=== PATIENT | male | born 1960 | race Caucasian/White ===

== ENCOUNTER 2020-04-14 20:06 | Observation (INO) | payer BC, SELFPAY ==
[2020-04-14] VITALS (7 sets, daily range): BP systolic 140–191; BP diastolic 71–92; PULSE 50–65; RESP 17–18; TEMP 36.6; O2SAT 95–97; BMI 25.9; BMI 25.2
--- NOTE | 2020-04-14 19:56 | ECG_ITS ---
APPROVED REPORT Exam: Resting ECG HR:57 bpm ECG Measurements Heart Rate 57 AXES [place] 162 P 43 QRSd 88 QRS -14 QT 410 T 22 QTc 399 Conclusion Sinus bradycardia Otherwise normal ECG Electronically signed by : Lino Benito, 04/18/2020 13:58:41
--- NOTE | 2020-04-14 20:15 | XR_ITS ---
PROCEDURE: XR CHEST 2V CLINICAL HISTORY: CHEST TIGHTNESS COMPARISON: No exams were available for comparison FINDINGS: The cardiomediastinal silhouette and pulmonary vascularity are within normal limits. There is calcified granuloma left upper lobe. There is mild coarsening of the bronchovascular markings. Faint opacity is present in the left midlung overlying the 4th rib anteriorly possibly due to summation artifact. Follow-up may confirm and to exclude developing nodule.. There is increased density at the T8 level on the lateral view posteriorly possibly due to the overlying osteophyte. There are degenerative changes of the thoracic spine. IMPRESSION: 1. No acute finding. 2. Coarsening of the bronchovascular markings suggesting COPD with possible left upper lobe nodule. Follow-up may confirm. Dictated by: Rufino Franklin MD 04/15/2020 05:53 Rufino Franklin MD in [place] 04/15/2020 05:53
[2020-04-14 20:49] LABS: Basophils # 0.1 K/mm3 (0-0.2); Basophils % 0.6 % (0.1-2.0); Eosinophils # 0.3 K/mm3 (0.0-0.4); Eosinophils % 2.6 % (0.1-12.0); Hematocrit 47.6 % (42.0-52.0); Hemoglobin 16.1 g/dL (14.1-18.0); Lymphocytes # 2.2 K/mm3 (0.7-4.5); Lymphocytes % 23.1 % (10-50); Mean Corpuscular HGB Conc 33.8 g/dL (31.8-35.4); Mean Corpuscular Hemoglobin 31.6 pg (27.0-31.2); Mean Corpuscular Volume 93.5 fl (80-94); Monocytes # 0.9 K/mm3 (0.1-1.0); Monocytes % 9.2 % (1.7-9.3); Neutrophils % 64.5 % (37.0-80.0); Platelet Count 270 K/mm3 (142-424); Red Blood Count 5.09 M/mm3 (4.60-6.20); Red Cell Distribution Width 13.3 % (11.5-17.5); White Blood Count 9.3 K/mm3 (4.8-10.8)
[2020-04-14 20:55] LABS: Potassium 3.7 mmoL/L (3.5-5.1); Sodium 142 mmol/L (136-145)
[2020-04-14 20:56] LABS: Chloride 106 mmol/L (98-107)
[2020-04-14 20:58] LABS: Anion Gap 10.7 mEq/L (5-15); Blood Urea Nitrogen 14 mg/dl (9-20); Carbon Dioxide 29 mmol/L (22.0-30.0); Creatinine Clearance Estimated 90 mL/min (50-200); Estimated Glomerular Filt Rate 69 ml/min (>60); GFR (African American) 83 ML/MIN (>60)
[2020-04-14 20:59] LABS: Calcium 9.4 mg/dl (8.4-10.2); Glucose 104 mg/dl (74-100)
[2020-04-14 21:11] LABS: Troponin I < 0.01 ng/ml (0.00-0.034)
--- NOTE | 2020-04-14 21:18 | HMH.EDCP ---
ED Disposition Clinical Impression: Chest pain Qualifiers: Chest pain type: precordial pain Qualified Code(s): R07.2 - Precordial pain Disposition: Admitted as Observation Condition on Discharge: Good Referrals: Provider,Referral, [Primary Care Provider] - - Critical Care Critical Care Time: No Attestation: On 04/14/20, the high probability of a clinically significant, sudden or life threatening deterioration of the following system(s) required my full and direct attention, intervention and personal management. The time I documented below is in addition to time spent performing reported procedures but includes the following listed in this critical care notation. Medical Decision Making - Medical Records Medical records reviewed: Yes: I reviewed the patient's medical records. - Claudio Inquiry Pt receiving controlled substance: No Vital Signs: 04/14/20 20:07 04/14/20 20:45 04/14/20 21:33 Temperature 97.9 F 97.9 F Temperature Source Oral Oral Pulse Rate [Right Brachial] 65 55 L 53 L Respiratory Rate 17 17 17 Blood Pressure [Right Arm] 191/88 H 155/79 H 170/92 H Blood Pressure Mean [Right Arm] 122 104 118 Blood Pressure Source [Right Arm] Automatic Cuff Automatic Cuff Automatic Cuff Blood Pressure Position [Right Arm] Sitting Sitting Sitting 02 Sat by Pulse Oximetry 96 97 97 Oxygen Delivery Method Room Air Room Air Room Air - Lab Data Lab results reviewed: Yes: I reviewed the patient's lab results. Lab Results 04/14/20 20:10: WBC Cancelled, Corrected WBC Cancelled, RBC Cancelled, Hgb Cancelled, Hct Cancelled, MCV Cancelled, MCH Cancelled, MCHC Cancelled, RDW Cancelled, Plt Count Cancelled, MPV Cancelled, Neut % (Auto) Cancelled, Lymph % (Auto) Cancelled, [place] % (Auto) Cancelled, Eos % (Auto) Cancelled, Baso % (Auto) Cancelled, Neut # (Auto) Cancelled, Lymph # (Auto) Cancelled, [place] # (Auto) Cancelled, Eos # (Auto) Cancelled, Baso # (Auto) Cancelled 04/14/20 20:10: Sodium 142, Potassium 3.7, Chloride 106, Carbon Dioxide 29, Anion Gap 10.7, BUN 14, Creatinine 1.10, Estimated Creat Clear 90, Estimated GFR 69, Est GFR ( Amer) 83, Glucose 104 H, Calcium 9.4, Troponin I < 0.01 04/14/20 20:37: WBC 9.3, RBC 5.09, Hgb 16.1, Hct 47.6, MCV 93.5, MCH 31.6 H, MCHC 33.8, RDW 13.3, Plt Count 270, MPV 8.0, Neut % (Auto) 64.5, Lymph % (Auto) 23.1, [place] % (Auto) 9.2, Eos % (Auto) 2.6, Baso % (Auto) 0.6, Neut # (Auto) 6.0, Lymph # (Auto) 2.2, [place] # (Auto) 0.9, Eos # (Auto) 0.3, Baso # (Auto) 0.1 Result diagrams: 04/14/20 20:37 04/14/20 20:10 Orders (Tests/Meds): ED MEDICATIONS Discontinued Medications Generic Name Dose Route Start Last Admin Trade Name Freq PRN Reason Stop Dose Admin Aspirin 324 mg 04/14/20 21:23 04/14/20 21:24 Aspirin 81mg Chewable Tablet PO 04/14/20 21:24 324 mg ONCE ONE Administration Nitroglycerin 1 gm 04/14/20 22:00 04/14/20 22:05 Nitroglycerin 1 Gm Ointment TD 04/14/20 22:01 1 gm ONCE ONE Administration ORDERS Category Date Time Status XR chest 2V Stat Exams 04/14/20 20:15 Taken Covid-19 IgG/IgM ([facility]) Stat Lab 04/14/20 20:37 Received Troponin I Q3H Lab 04/14/20 23:15 Ordered Troponin I Q3H Lab 04/15/20 02:15 Ordered Urinalysis and Microscopic Stat Lab 04/14/20 20:14 Ordered - Radiology Data #1 Image(s): Chest Image Reviewed: Yes I reviewed the patient's radiology image Preliminary Findings: Normal/NAD - ECG Data Tracing #1 Normal Sinus Rhythm: Yes Ischemic changes: non-specific ST-T wave changes - Physician Consults Physician Consulted: mellissa Reason -: Admission Chest Pain HPI - General Chief Complaint: Chest Pain Stated Complaint: CHEST TIGHTNESS Time Seen by Provider: 04/14/20 20:40 Mode of Arrival: Ambulatory Source of Information: Patient, Medical Record Limitations: No Limitations Description of Symptoms (Recalled from ER Triage Doc. by RN): PATIENT REPORTS HES BEEN STRUGGLING WITH ALOT OF ANXIETY/NERVOU
--- NOTE | 2020-04-14 22:08 | PC.NURSE ---
call placed to house admin
[2020-04-14 22:31] LABS: Coronavirus 19 IgG Antibody Negative (Negative); Coronavirus 19 IgM Antibody Negative (Negative)
--- NOTE | 2020-04-14 23:00 | PC.NURSE ---
PT ARRIVED TO THE FLOOR VIA W/C W/STAFF FROM ED @[id number]
--- NOTE | 2020-04-14 23:45 | PC.NURSE ---
Pt. clipped using surgical clippers. Pt. in shower at this time,
[2020-04-14 23:59] LABS: Troponin I < 0.01 ng/ml (0.00-0.034)
[2020-04-15] VITALS (18 sets, daily range): BP systolic 105–141; BP diastolic 55–81; PULSE 40–95; RESP 15–18; TEMP 36.6–36.8; O2SAT 93–99; BMI 25.3
--- NOTE | 2020-04-15 | IR_ITS ---
APPROVED REPORT Patient Location: Outpatient PROCEDURES Left heart catheterization Left ventriculogram Selective coronary angiogram Drug-eluting stent deployment to the mid chronically occluded left anterior descending artery Drug-eluting stent deployment to the first diagonal artery Drug-eluting stent deployment to the proximal circumflex artery INDICATION Coronary artery disease, Unstable angina, Family history of sudden cardiac stemming from coronary artery disease Informed consent was obtained prior to the procedure. COMPLICATIONS None Estimated Blood Loss: less than 10 ml TECHNIQUE One percent lidocaine used to anesthetize the right anterior aspect of the wrist. The right radial artery was accessed via the Seldinger technique. A 6 Romansh sheath was placed in the right radial artery. 2.5 mg of verapamil, 800 mcg of nitroglycerin, 1mg Lidocaine and 5000 U Heparin were given through the arterial sheath. The Poppa catheter was also used to perform left heart catheterization, left ventriculogram and selective coronary angiogram. At the end the diagnostic angiogram therapeutic heparin was administered giving a therapeutic ACT. A Choice PT extra-support wire was placed into the chronically occluded mid LAD. A 2 mm balloon could not be passed through the chronic occlusion. A telescope was then advanced into the mid LAD and a 1.25 x 10 mm balloon was deployed at 15 shawna reducing the stenosis. An additional 2 mm x 10 mm balloon was then deployed on multiple occasions in the chronic occlusion. After reducing the chronic occlusion a 2 mm x 15 mm resolute jg stent was deployed in the mid LAD at 15 shawna reducing the occlusion to 0%. After stenting there was excellent JACOB-3 antegrade flow down the LAD. At this point the wire was pulled back and placed into large first diagonal artery where a 2.75 x 18 mm resolute jg stent was deployed in the proximal LAD extending into a large first diagonal artery at 20 shawna. This reduced the severe stenosis. Given the LAD stent was not immediately adjacent to the diagonal stent it was decided not to place an additional bifurcating stent in the LAD. 800 mcg of intracoronary nitroglycerin was administered. The apparatus was pulled back and the wire was placed on the circumflex artery where a 2.75 x 12 mm resolute jg stent was then deployed in the proximal circumflex artery at 20 shawna reducing the stenosis to 0%. JACOB-3 flow was present before and after the procedure. Repeat angiography demonstrated the mid to distal LAD was increasing in diameter compared to the previous angiogram. At this point after achieving excellent angiographic results the apparatus was removed the sheath was removed and hemostasis was achieved using TR banding patient was transferred to the postop holding in stable condition ANGIOGRAPHIC RESULTS The left main artery Normal The left anterior descending artery Is proximally normal. After large first diagonal artery the LAD is then subtotally occluded. The distal LAD fills via left to left collaterals from a large first diagonal artery. The large first diagonal artery has an ostial 60 to 70% stenosis. Distal to the LAD stent there is a long 35 mm zone of narrowing. It is unknown if this is atherosclerosis or chronic spasm and atrophy from the chronic total occlusion. The circumflex artery Is a nondominant vessel and has a proximal focal 90% stenosis. Proximal and distal to the 90% stenoses are 10 to 20% diffuse stenoses The right coronary artery Is a large dominant vessel and has mid vessel 30 to 40% stenosis The ADAIR ventriculogram reveals Normal 65% The left ventricular end-diastolic pressure 10 mmHg IMPRESSION Critical coronary
[2020-04-15 03:12] LABS: Troponin I < 0.01 ng/ml (0.00-0.034)
--- NOTE | 2020-04-15 04:27 | PC.NURSE ---
shift summary, no acute changes since prior assessment, pt has rested well t/o shift, no complaints of chest pain, SOA, N/V, diaphoresis, HR 55-60, systolic BP 117-143, specimen cup at bedside, pt aware of need for urine specimen
--- NOTE | 2020-04-15 06:13 | PC.NURSE ---
Petey ENGLE NOTIFIED OF CONSULT
[2020-04-15 06:58] LABS: Chloride 106 mmol/L (98-107); Sodium 141 mmol/L (136-145)
[2020-04-15 07:00] LABS: Blood Urea Nitrogen 16 mg/dl (9-20); Creatinine Clearance Estimated 88 mL/min (50-200); Estimated Glomerular Filt Rate 69 ml/min (>60); GFR (African American) 83 ML/MIN (>60)
[2020-04-15 07:01] LABS: Calcium 9.1 mg/dl (8.4-10.2); Carbon Dioxide 30 mmol/L (22.0-30.0); Chol/HDL Ratio 6.3 (1-3.5); Cholesterol 144 mg/dl (140-200); Glucose 104 mg/dl (74-100); HDL Cholesterol 23 mg/dl (40-60); Magnesium 2.2 mg/dl (1.6-2.3); Triglycerides 152 mg/dl (30-150); VLDL Cholesterol 30 mg/dL (0-40)
[2020-04-15 07:12] LABS: Direct LDL Cholesterol 97.54 mg/dL (100-129)
[2020-04-15 07:21] LABS: Basophils % 0.4 % (0.1-2.0); Eosinophils # 0.3 K/mm3 (0.0-0.4); Eosinophils % 3.8 % (0.1-12.0); Hematocrit 43.1 % (42.0-52.0); Mean Corpuscular HGB Conc 32.7 g/dL (31.8-35.4); Mean Corpuscular Hemoglobin 30.5 pg (27.0-31.2); Mean Corpuscular Volume 93.2 fl (80-94); Mean Platelet Volume 7.5 fl (7.4-10.4); Monocytes # 0.8 K/mm3 (0.1-1.0); Monocytes % 10.3 % (1.7-9.3); Neutrophils # 4.7 K/mm3 (1.8-7.8); Neutrophils % 60.5 % (37.0-80.0); Platelet Count 244 K/mm3 (142-424); Red Blood Count 4.63 M/mm3 (4.60-6.20); Red Cell Distribution Width 13.1 % (11.5-17.5); White Blood Count 7.8 K/mm3 (4.8-10.8)
--- NOTE | 2020-04-15 07:26 | P.CONPHA_ITS ---
[facility] VTE Monitoring - Patient Demographics Admission date: 04/15/20 Report Date: 04/15/20 Time: 07:26 Allergies/Adverse Reactions: Patient Allergies No Known Allergies Allergy (Verified 04/15/20 00:05) Height: 1.83 m Weight: 84.964 kg Patient Problems: Current Active Problems Chest pain (Acute) - VTE Risk Labs: VTE Related Lab Results Hgb 16.1 g/dL (14.1-18.0) 04/14/20 20:37 Hct 43.1 % (42.0-52.0) 04/15/20 06:18 Plt Count 244 K/mm3 (142-424) 04/15/20 06:18 BUN 16 mg/dl (9-20) 04/15/20 06:18 Creatinine 1.10 mg/dl (0.66-1.25) 04/15/20 06:18 Estimated Creat Clear 88 mL/min (50-200) 04/15/20 06:18 Was VTE Risk Assessment Performed: Yes VTE Score: 5 VTE Risk Level: Low Risk Clinical Trial Participant: No - Prophylaxis VTE Prophylaxis Ordered?: Yes Types of VTE Prophylaxis: TEDS Knee High
--- NOTE | 2020-04-15 07:56 | HMH.CNCARD ---
History of Present Illness Consult date: 04/15/20 Requesting physician: Abel Carbajal Consult reason: chest pain Chief complaint: chest pain Additional Medical History:: 1. Smoker, 1.5 packs/day x 30 years A. COPD, moderate by PFTs, 2017 2. Anxiety and depression, situational 3. Family history of CAD in sister (sister this year after NE and coronary stenting) and uncle (history of pacemaker) 4. Hyperlipidemia 5. Chronic GERD, on PPI History of present illness: 59-year-old white male was seen in his PCP office yesterday for chest discomfort described as anterior chest tightness but also mid back aching sensation that would wax and wane during the day for 1 to 2 days. He also relates his daughter and granddaughter recently moving out along with his sister passing earlier this year after suffering myocardial infarction and coronary stenting. Patient does feel his anxiety is playing into this and he was started on bupropion yesterday symptoms continued edema and worsened after leaving his PCP office. This prompted him to come to the ER for evaluation. He was given 4 baby aspirin with slow resolution of symptoms thereafter. EKG last evening shows sinus bradycardia with no acute ST segment changes. Troponins are normal x3. He does note some brief fleeting discomfort this a.m. Patient is extremely nervous about this potentially being his heart in light of his recent family history. States he is concerned about dying from a heart attack. Preliminary echocardiogram this morning shows preserved ejection fraction with only mild valvular insufficiencies. [facility] History Medical History: Denies:: Cancer, Diabetes Mellitus Type 1, Diabetes Mellitus Type 2, MRSA *Have you ever received a pneumonia vaccine?: No *Have you received a flu vaccine this season?: No Other Surgeries: Yes: Cholecystectomy Amputation: No Fractures: No - *Social History Last grade of school completed: 9th or 10th Smoking Status: Current every day smoker Tobacco Type: cigarettes # Packs/Day (cigarettes): 1 Alcohol Intake: never *Occupational Status:: retired Housing: house *Travel in the last 8 weeks: None Family Hx:: Cancer, Hyperlipidemia, Hypertension, Kidney Disease, Thyroid Disorder Meds Home Medications Medication Instructions Recorded Confirmed Type buPROPion HCL [Bupropion Xl] 150 mg PO DAILY 04/14/20 04/14/20 History Allergies Allergy/AdvReac Type Severity Reaction Status Date / Time No Known Allergies Allergy Verified 04/15/20 00:05 Exam Vital signs and Labs for Last 24 Hours: Temp Pulse Resp BP Pulse Ox 98.3 F 60 17 117/68 98 04/15/20 04:00 04/15/20 04:00 04/15/20 04:00 04/15/20 04:00 04/15/20 04:00 Laboratory Results - last 24 hr 04/14/20 20:10: WBC Cancelled, Corrected WBC Cancelled, RBC Cancelled, Hgb Cancelled, Hct Cancelled, MCV Cancelled, MCH Cancelled, MCHC Cancelled, RDW Cancelled, Plt Count Cancelled, MPV Cancelled, Neut % (Auto) Cancelled, Lymph % (Auto) Cancelled, [place] % (Auto) Cancelled, Eos % (Auto) Cancelled, Baso % (Auto) Cancelled, Neut # (Auto) Cancelled, Lymph # (Auto) Cancelled, [place] # (Auto) Cancelled, Eos # (Auto) Cancelled, Baso # (Auto) Cancelled 04/14/20 20:10: Sodium 142, Potassium 3.7, Chloride 106, Carbon Dioxide 29, Anion Gap 10.7, BUN 14, Creatinine 1.10, Estimated Creat Clear 90, Estimated GFR 69, Est GFR ( Amer) 83, Glucose 104 H, Calcium 9.4, Troponin I < 0.01 04/14/20 20:37: WBC 9.3, RBC 5.09, Hgb 16.1, Hct 47.6, MCV 93.5, MCH 31.6 H, MCHC 33.8, RDW 13.3, Plt Count 270, MPV 8.0, Neut % (Auto) 64.5, Lymph % (Auto) 23.1, [place] % (Auto) 9.2, Eos % (Auto) 2.6, Baso % (Auto) 0.6, Neut # (Auto) 6.0, Lymph # (Auto) 2.2, [place] # (Auto) 0.9, Eos # (Auto) 0.3, Baso # (Auto) 0.1 04/14/20 20:37: SARS-CoV-2 IgG Ab (Rapid) Negative, SARS-CoV-2 IgM Ab (Rapid) Negative 04/14/20 23:30: Troponin I < 0.01 04/15/20 02:35: Troponin I < 0.01 04/15/20 06:18: WBC 7.8, RBC 4.63, Hct 43.1, MCV 93.2,
--- NOTE | 2020-04-15 08:00 | CA_ITS ---
APPROVED REPORT EXAM: Comprehensive 2D, Doppler, and color-flow Echocardiogram Letterer: Lelsy Osorio CRT Ht: 6 ft 0 in Wt: 192lbs BSA: 2.09 BP: 120/78 mmHg Indications: Chest Pain, smoker 2D Dimensions LVOT 1.95 cm (M/F) 1.5-2.5 M-Mode Dimensions RVDd 3.00 cm (0.9-2.6) LVDd 4.79 cm (3.5-5.7) LVDs 3.32 cm (3.5-5.7) IVSd 1.57 cm (0.6-1.1) PWd 0.75 cm (0.6-1.1) EF (Teich) 58.10% FS 30.70% EDV (Teich) 107.00 mL ESV (Teich) 44.80 mL LV Diastology E/A Ratio 1.56 Mitral Valve MV A Velocity 52.00 (40-130 cm/s) Left Ventricle Left atrium is mildly enlarged, left ventricle is normal size, mild concentric left ventricular hypertrophy, visually estimated ejection fraction 55% with no regional wall motion abnormality, grade 1 diastolic dysfunction seen without tissue Doppler evidence of raise left atrial pressure. Right Ventricle Right atrium and right ventricular normal size and contractility. Aortic Valve Aortic valve is minimally thickened and fibrosed, there is no aortic stenosis or aortic insufficiency. Mitral Valve Mitral valve is grossly normal, there is mild mitral regurgitation. Tricuspid Valve Tricuspid valve grossly normal, there is mild tricuspid regurgitation, tricuspid regurgitation jet velocity is inadequate for calculation of the right ventricular systolic pressure. Pulmonic Valve Pulmonic valve is poorly visualized. Great Vessels Aortic root is normal size. Pericardium No significant pericardial effusion noted. Conclusion 1. Mildly enlarged left atrium, normal left ventricular size, mild concentric left ventricular hypertrophy, visually estimated ejection fraction 55% with no regional wall motion abnormality, grade 1 diastolic dysfunction seen without tissue Doppler evidence of raise left atrial pressure. 2. Mild mitral and tricuspid regurgitation. 3. No significant pericardial effusion noted. Electronically signed by : Baldemar Noriega, 04/15/2020 20:09:06
[2020-04-15 08:46] LABS: Hemoglobin 14.1 g/dL (14.1-18.0)
--- NOTE | 2020-04-15 09:10 | HMH.HP ---
*Admission Date: 04/15/20 <BrownJulietteDivina - 04/15/20 09:31> *Chief complaint: Chest pain <Divina Brown 04/15/20 09:31> *History of present illness: Mr. Schwarz is a 59-year-old male with a previous negative medical history who presented to [facility] emergency room after experiencing ongoing intermittent anterior chest tightness/discomfort and pain between his shoulder blades. He states he has had the intermittent discomfort for the last 1 to 2 days. Sometimes it is associated with shortness of breath. He felt this might be due to anxiety and thus he presented to the office of [facility] yesterday and was started on bupropion for his anxiety. He describes being very nervous on the inside with jitters. He feels the anxiety is due to recent sister's from a heart attack and previous heart attack by his brother as well as family moving out of his home.. He also describes heartburn for which he takes omeprazole [id number]. He has felt weak and without any energy for the past 2 weeks. In the emergency room with evaluation CBC was basically normal. Blood chemistries showed normal electrolytes and renal function. Troponin I has been normal x3. EKG revealed a sinus bradycardia with no acute ST segment changes. Chest x-ray showed no acute findings with coarsening of the bronchial vascular markings suggesting COPD with possible left upper lobe nodule. Chest and back discomfort did slowly resolve. This morning he is comfortable. He denies shortness of breath. He has been seen by cardiology who plans for cardiac cath. <Divina Brown 04/15/20 09:31> [facility] History Medical History: Reports:: Gastroesophageal Reflux Disease(GERD) Denies:: Cancer, Diabetes Mellitus Type 1, Diabetes Mellitus Type 2, Hypertension, MRSA, Peripheral Artery Disease <Divina Brown 04/15/20 09:31> *Have you ever received a pneumonia vaccine?: No <Divina Brown 04/15/20 09:31> *Have you received a flu vaccine this season?: No <Divina Brown 04/15/20 09:31> Other Medical History: Denies: Arthritis <Divina Brown 04/15/20 09:31> Other Surgeries: Yes: Cholecystectomy <Divina Brown 04/15/20 09:31> Amputation: No <Divina Brown 04/15/20 09:31> Fractures: No <Divina Brown 04/15/20 09:31> - *Social History Last grade of school completed: 9th or 10th <Divina Brown 04/15/20 09:31> Smoking Status: Current every day smoker <Divina Brown 04/15/20 09:31> Tobacco Type: cigarettes <BrownDivina 04/15/20 09:31> # Packs/Day (cigarettes): 1 <KevinDivina 04/15/20 09:31> Alcohol Intake: never <KevinDivian 04/15/20 09:31> *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) <BrownDivina 04/15/20 09:31> Housing: house <Divina Brown 04/15/20 09:31> Household Members: family <BrownDivina 04/15/20 09:31> *Travel in the last 8 weeks: None <Divina Brown 04/15/20 09:31> Family Hx:: Cancer, Coronary Artery Disease, Heart Attack, Hyperlipidemia, Hypertension, Kidney Disease, Thyroid Disorder <BrownDivina 04/15/20 09:31> Review of Systems - Constitutional Reports lack of energy, Denies fever(s) <BrownDivina 04/15/20 09:31> - Eyes Reports change in vision <Brown,Divina 04/15/20 09:31> Comments: Has started to wear glasses <KevinDivina 04/15/20 09:31> - ENT Denies ear pain, Denies headache(s), Denies sore throat <Brown,Divina 04/15/20 09:31> - *Cardiovascular Reports chest pain, Reports shortness of breath, Reports irregular heart rhythm (Rare), Denies leg pain with activity, Denies generalized swelling, Denies leg swelling, Denies lightheadedness <Divina Brown 04/15/20 09:31> - *Respiratory Reports shortness of breath, Denies chest congestion, Denies cough <Divina Brown 04/15/20 09:31> - *Gastrointestinal Reports heartburn, Reports nausea, Denies abdominal pain, Denies vomiting <Divina Brown - 04/15/20 09:31> - *Genitourinary
[2020-04-15 09:11] LABS: Appearance,Urine SL CLOUDY (Clear); Blood, Urine Negative (Negative); Color,Urine ORANGE (Yellow); Glucose,Urine (UA) Negative (Negative); Ketones,Urine Negative (Negative); Leukocyte Esterase,Urine Negative (Negative); Microscopic, Urine URINE MICROSCOPIC (MICROSCOPIC); Nitrate,Urine Negative (Negative); PH,Urine 5.5 (5.0-8.5); Protein,Urine Negative (Negative); Specific Gravity, Urine >= 1.030 (1.005-1.030)
[2020-04-15 09:14] LABS: Bilirubin,Urine Negative (Negative)
[2020-04-15 09:23] LABS: Bacteria,Urine Trace /lpf; Mucus,Urine 2+ /lpf; Squamous Epithelial Cell,Urine Occasional #/hpf (0-5); Transitional Epi Cells,Urine OCC #/lpf (0-3)
[2020-04-15 16:01] LABS: CATHL Activated Clotting Time 257 SEC (74-125)
[2020-04-15 16:02] LABS: CATHL Activated Clotting Time > 400 SEC (74-125)
--- NOTE | 2020-04-15 16:21 | PC.NURSE ---
arrived to the floor from cathlab. Is now in room 216 step down
--- NOTE | 2020-04-15 19:39 | PC.NURSE ---
TRACELET DECREASED FOLLOWS 1800 TURNED DOWN TO 10 1815 TURNED DOWN TO 8 1830 TURNED DOWN TO 6 1845 TURNED DOWN TO 4 1925 TURNED DOWN TO 2 ALL WITHOUT ISSUE.
--- NOTE | 2020-04-15 20:15 | PC.NURSE ---
TRACELET DECREASED TO 0 ML AT THIS TIME. NO BLEEDING NOTED. 2X2 GAUZE AND TEGADERM APPLIED. WILL CONTINUE TO MONITOR.
[2020-04-16] VITALS: BP 121/69; PULSE 50; RESP 16; TEMP 37.7; O2SAT 96
[2020-04-16 02:00] VITALS: BP 110/69; PULSE 71; RESP 17; O2SAT 96
[2020-04-16 04:00] VITALS: BP 118/68; PULSE 50; PULSE 52; TEMP 36.8; O2SAT 96
--- NOTE | 2020-04-16 05:48 | PC.NURSE ---
A&OX3. SENIOR SOLUTIONS ARCHITECT EQUAL BILAT. LUNGS NOTED CLEAR T/ AUSCULTATION. TOLERATED RA WELL. PULSES +2, CAP REFILL <3 SEC. ASYMPTOMATIC SINUS FLAKITO AND NSR NOTED PER FILBERT GROWER. ABDOMEN NONDISTENDED, ACTIVE BOWEL SOUNDS, SOFT AND NONTENDER PER PALPATION. NO BM REPORTED THIS SHIFT. RIGHT RADIAL DRESSING NOTED CDI. INDEPENDENT WITH ADLS. VSS. WILL CONTINUE TO MONITOR.
[2020-04-16 05:52] LABS: Basophils % 0.3 % (0.1-2.0); Eosinophils # 0.3 K/mm3 (0.0-0.4); Eosinophils % 3.4 % (0.1-12.0); Hematocrit 46.1 % (42.0-52.0); Hemoglobin 15.2 g/dL (14.1-18.0); Lymphocytes # 1.4 K/mm3 (0.7-4.5); Lymphocytes % 14.3 % (10-50); Mean Corpuscular HGB Conc 32.8 g/dL (31.8-35.4); Mean Corpuscular Hemoglobin 30.5 pg (27.0-31.2); Mean Corpuscular Volume 92.9 fl (80-94); Mean Platelet Volume 7.7 fl (7.4-10.4); Monocytes # 0.7 K/mm3 (0.1-1.0); Neutrophils # 7.1 K/mm3 (1.8-7.8); Neutrophils % 74.9 % (37.0-80.0); Platelet Count 267 K/mm3 (142-424); Red Blood Count 4.97 M/mm3 (4.60-6.20); Red Cell Distribution Width 12.8 % (11.5-17.5); White Blood Count 9.5 K/mm3 (4.8-10.8)
[2020-04-16 06:02] LABS: Chloride 108 mmol/L (98-107)
[2020-04-16 06:03] LABS: Potassium 4.4 mmoL/L (3.5-5.1); Sodium 140 mmol/L (136-145)
[2020-04-16 06:06] LABS: Anion Gap 9.4 mEq/L (5-15); Blood Urea Nitrogen 18 mg/dl (9-20); Carbon Dioxide 27 mmol/L (22.0-30.0); Creatinine Clearance Estimated 88 mL/min (50-200); Estimated Glomerular Filt Rate 69 ml/min (>60); GFR (African American) 83 ML/MIN (>60); Glucose 96 mg/dl (74-100)
[2020-04-16 08:00] VITALS: BP 124/63; PULSE 50; PULSE 51; RESP 17; TEMP 36.8; O2SAT 97
--- NOTE | 2020-04-16 08:40 | HMH.ACPN2 ---
<Divina Brown - Last Filed: 04/16/20 08:40> Internal Medicine - PN: Subj *Date: 04/16/20 *Time: 08:40 Interval history: Patient states he slept well. He has had no further chest pain. He is breathing without difficulty. He ate breakfast. He has been out of bed and is sitting in a chair now. IMPRESSION Critical coronary disease Successful stenting and revascularization of chronically occluded mid LAD with successful stenting reducing to 0% with one drug-eluting stent Successful stenting of the proximal LAD extending into a large first diagonal artery severe disease reduced to 0% with one drug-eluting stent Persistent moderate to severe disease over 35 mm of a mid to distal 2 mm LAD Severe stenosis in the proximal nondominant circumflex artery Successful stenting of proximal circumflex artery severe disease reduced to 0% with one drug-eluting stent Mild to moderate disease in the mid dominant right coronary Normal ejection fraction Normal left ventricular end-diastolic pressure Exam Vital signs and Labs for Last 24 Hours: Temp Pulse Resp BP Pulse Ox 99.8 F H 50 L 16 121/69 96 04/16/20 00:00 04/16/20 04:00 04/16/20 00:00 04/16/20 00:00 04/16/20 00:00 Laboratory Results - last 24 hr 04/15/20 06:18: Hgb 14.1 D 04/15/20 08:00: Urine Color [place], Urine Appearance Sl cloudy, Urine pH 5.5, Ur Specific Mart >= 1.030, Urine Protein Negative, Urine Glucose (UA) Negative, Urine Ketones Negative, Urine Blood Negative, Urine Nitrate Negative, Urine Bilirubin Negative, Urine Urobilinogen 1.0, Ur Leukocyte Esterase Negative, Urine RBC 3-5, Urine WBC 5-10, Ur Squamous Epith Cells Occasional, Ur Transition Epith Cell Occ, Urine Bacteria Trace, Urine Mucus 2+ 04/15/20 15:10: Activated Clotting Time > 400 H* 04/15/20 15:39: Activated Clotting Time 257 H* D 04/16/20 05:45: WBC 9.5, RBC 4.97, Hgb 15.2, Hct 46.1, MCV 92.9, MCH 30.5, MCHC 32.8, RDW 12.8, Plt Count 267, MPV 7.7, Neut % (Auto) 74.9, Lymph % (Auto) 14.3, [place] % (Auto) 7.0, Eos % (Auto) 3.4, Baso % (Auto) 0.3, Neut # (Auto) 7.1, Lymph # (Auto) 1.4, [place] # (Auto) 0.7, Eos # (Auto) 0.3, Baso # (Auto) 0.0 04/16/20 05:45: Sodium 140, Potassium 4.4, Chloride 108 H, Carbon Dioxide 27, Anion Gap 9.4, BUN 18, Creatinine 1.10, Estimated Creat Clear 88, Estimated GFR 69, Est GFR ( Amer) 83, Glucose 96, Calcium 9.0 I & O for Last 24 hours: Intake & Output 04/13/20 04/14/20 04/15/20 04/16/20 11:59 11:59 11:59 11:59 Intake Total 284 / 284 Balance 284 / 284 Weight 187 lb 5 oz - Constitutional no acute distress Comments: Sitting up in a chair with family at bedside. He appears comfortable. - *Routine Respiratory Exam Present: CTA bilaterally (Anteriorly and posteriorly) - *Routine Cardiovascular Exam Present: RRR - *Routine Abdominal Exam Present: soft. Absent: tenderness, distended - *Routine Extremities Exam Absent: edema - *Routine Neurological Exam Present: alert, oriented X3 Assessment and Plan (1) Chest pain Status: Acute Qualifiers: Chest pain type: precordial pain Qualified Code(s): R07.2 - Precordial pain Category: Medical Code(s): R07.9 - Chest pain, unspecified (2) Smoker Status: Acute Category: Social Hx Code(s): F17.200 - Nicotine dependence, unspecified, uncomplicated (3) COPD (chronic obstructive pulmonary disease) Status: Acute Category: Medical Code(s): J44.9 - Chronic obstructive pulmonary disease, unspecified (4) Hyperlipidemia Status: Acute Category: Medical Code(s): E78.5 - Hyperlipidemia, unspecified (5) Elevated blood pressure, situational Status: Acute Category: Medical Code(s): R03.0 - Elevated blood-pressure reading, without diagnosis of hypertension (6) Anxiety and depression Status: Acute Category: Medical Code(s): F41.9 - Anxiety disorder, unspecified; F32.9 - Major depressive disorder, single episode, unspecified - Assessment and pl
--- NOTE | 2020-04-16 10:41 | HMH.PNCARD ---
Subjective Date: 04/16/20 Time: 10:40 Principal diagnosis: CAD s/p stenting Interval history: This is a 59-year-old white gentleman who underwent left cardiac catheterization yesterday. He had 2 stents placed to his LAD and 1 stent placed to his circumflex. He did have persistent disease that was in the moderate range to his right coronary artery. He also had persistent disease to his LAD for which Dr. Salazar recommend him undergoing stress testing in 1 month. Today he denies any chest pain, pressure, shortness of breath or edema. He denies any fever, chills, nausea, vomiting, diarrhea, PND or orthopnea. He does state that he has a little fatigue which he attributes to the sedation medicine that he received yesterday to undergo left cardiac catheterization. Exam Vital signs and Labs for Last 24 Hours: Temp Pulse Resp BP Pulse Ox 98.3 F 51 L 17 124/63 97 04/16/20 08:00 04/16/20 08:00 04/16/20 08:00 04/16/20 08:00 04/16/20 08:00 Laboratory Results - last 24 hr 04/15/20 15:10: Activated Clotting Time > 400 H* 04/15/20 15:39: Activated Clotting Time 257 H* D 04/16/20 05:45: WBC 9.5, RBC 4.97, Hgb 15.2, Hct 46.1, MCV 92.9, MCH 30.5, MCHC 32.8, RDW 12.8, Plt Count 267, MPV 7.7, Neut % (Auto) 74.9, Lymph % (Auto) 14.3, [place] % (Auto) 7.0, Eos % (Auto) 3.4, Baso % (Auto) 0.3, Neut # (Auto) 7.1, Lymph # (Auto) 1.4, [place] # (Auto) 0.7, Eos # (Auto) 0.3, Baso # (Auto) 0.0 04/16/20 05:45: Sodium 140, Potassium 4.4, Chloride 108 H, Carbon Dioxide 27, Anion Gap 9.4, BUN 18, Creatinine 1.10, Estimated Creat Clear 88, Estimated GFR 69, Est GFR ( Amer) 83, Glucose 96, Calcium 9.0 I & O for Last 24 hours: Intake & Output 04/13/20 04/14/20 04/15/20 04/16/20 23:59 23:59 23:59 23:59 Intake Total 284 / 284 637 / 637 Output Total 500 / 500 Balance 284 / 284 137 / 137 Weight 186 lb 12.8 oz 187 lb 5 oz Narrative: [facility] shows: ANGIOGRAPHIC RESULTS The left main artery Normal The left anterior descending artery Is proximally normal. After large first diagonal artery the LAD is then subtotally occluded. The distal LAD fills via left to left collaterals from a large first diagonal artery. The large first diagonal artery has an ostial 60 to 70% stenosis. Distal to the LAD stent there is a long 35 mm zone of narrowing. It is unknown if this is atherosclerosis or chronic spasm and atrophy from the chronic total occlusion. The circumflex artery Is a nondominant vessel and has a proximal focal 90% stenosis. Proximal and distal to the 90% stenoses are 10 to 20% diffuse stenoses The right coronary artery Is a large dominant vessel and has mid vessel 30 to 40% stenosis The ADAIR ventriculogram reveals Normal 65% The left ventricular end-diastolic pressure 10 mmHg IMPRESSION Critical coronary disease as described above Successful stenting and revascularization of chronically occluded mid LAD with successful stenting reducing to 0% with one drug-eluting stent Successful stenting of the proximal LAD extending into a large first diagonal artery severe disease reduced to 0% with one drug-eluting stent Persistent moderate to severe disease over 35 mm of a mid to distal 2 mm LAD Severe stenosis in the proximal nondominant circumflex artery Successful stenting of proximal circumflex artery severe disease reduced to 0% with one drug-eluting stent Mild to moderate disease in the mid dominant right coronary Normal ejection fraction Normal left ventricular end-diastolic pressure PLAN 1. Brilinta and aspirin 2. Maximize antianginal medications 3. Avoidance of tobacco products 4. LDL less than 55 5. Cardiac rehabilitation 6. I recommend patient undergo stress Myoview in 1 month to determine if the mid to distal LAD has increased in size. Given this was a chronic total occlusion I would not be surprised if the caliper of the mid to distal LAD positively remodels and matches the 2 mm diameter of the distal LAD.
[2020-04-16 11:00] VITALS: BP 145/83; PULSE 55; RESP 14; O2SAT 98
--- NOTE | 2020-04-16 11:11 | PC.NURSE ---
Let Mariela w/ [facility] know that pt has been cleared for discharge by cardiology.
[2020-04-16 12:00] VITALS: BP 146/77; PULSE 57; PULSE 60; RESP 20; O2SAT 98
--- NOTE | 2020-04-16 14:47 | HMH.PHACLD ---
Kyle Ba has received discharge medication counseling on the following medications: ASPIRIN 81MG BRILINTA 90MG ATORVASTATIN 80MG LISINOPRIL 5MG BETA ABILIO NOT INDICATED AT THIS TIME DUE TO PATIENT'S LOW HEART RATE PER AIMEE GATES'S NOTE. PATIENT IS TO CONTINUE BUPROPRION AT THIS TIME. PATIENT VERBALIZED UNDERSTANDING AND HAD NO QUESTIONS AT THIS TIME. -RUSS MOON, PHARMD
--- NOTE | 2020-04-18 09:43 | HMH.DCSUM ---
General - General Admission date:: 04/14/20 Discharge date: 04/16/20 HPI HPI: Mr. Schwarz is a 59-year-old male with a previous negative medical history who presented to [facility] emergency room after experiencing ongoing intermittent anterior chest tightness/discomfort and pain between his shoulder blades. He stated he had experienced the intermittent discomfort for the past 1 to 2 days. Sometimes it was associated with shortness of breath. He felt this might be due to anxiety and thus he presented to the office of [facility] and was started on bupropion for his anxiety. He described being very nervous on the inside with jitters. He felt the anxiety was due to recent sister's from a heart attack and previous heart attack by his brother as well as family moving out of his home.. He also described heartburn for which he was taking omeprazole [id number]. He had felt weak and without any energy for the past 2 weeks. In the emergency room with evaluation CBC was basically normal. Blood chemistries showed normal electrolytes and renal function. Troponin I was normal x3. EKG revealed a sinus bradycardia with no acute ST segment changes. Chest x-ray showed no acute findings with coarsening of the bronchial vascular markings suggesting COPD with possible left upper lobe nodule. Chest and back discomfort did slowly resolve. The following morning he was comfortable. He denied shortness of breath. He had been seen by cardiology who planned for cardiac cath. Hospital Course Hospital Course: Patient had no further chest pain after admission. With left heart cath he had placement of 3 stents.He was breathing without difficulty. He was able to eat without problems. He ambulated in the room without difficulty. Vital signs were stable although he continued with a sinus bradycardia. On 04/16/2020 he was stable to be discharged. Plan per cardiology was as follows. PLAN 1. Brilinta and aspirin 2. Maximize antianginal medications 3. Avoidance of tobacco products 4. LDL less than 55 5. Cardiac rehabilitation 6. I recommend patient undergo stress Myoview in 1 month to determine if the mid to distal LAD has increased in size. Given this was a chronic total occlusion I would not be surprised if the caliper of the mid to distal LAD positively remodels and matches the 2 mm diameter of the distal LAD. If patient stress test is normal I would continue with medical management. If patient has mid anterior apical ischemia I would recommend bringing him back to the [facility] and completely revascularized in the mid to distal LAD with drug-eluting stents And additional cardiology DC comments: 1. Patient was admitted to the hospital and underwent left cardiac catheterization. He had 2 stents placed to the LAD and 1 stent placed to the circumflex. The patient will remain on Brilinta and aspirin for dual antiplatelet therapy. 2. The patient will need to undergo Myoview stress test in 1 month to see if the persistent disease to his LAD is ischemic or not. 3. Coronary artery disease is present and likely stable. 4. His blood pressure is well controlled. 5. His LDL goal is less than 55. He has been started on high-dose statin. 6. The patient does have coronary artery disease. We will start him on lisinopril 5 mg p.o. daily. 7. His heart rate is too low to add a beta-dionicio at this time. 8. Tobacco cessation is highly advised and counseled. 9. The patient is stable for discharge home today from a cardiac standpoint. He will need to follow-up in 1 week in the outpatient cardiology clinic. Patient was discharged home in stable and satisfactory condition. Medications as per reconciliation sheet and as directed per cardiology. Follow-up in 1 week with cardiology. Objective Vital signs: Temp Pulse Resp BP Pulse Ox 98.3 F 57 L 20 146/77 H 98 04/16/20 08:00 04/16/20 12:00 04/16/20
== END 2020-04-16 15:40 | disposition home or self-care (01) ==
LOC: ER 22:19 → 2ND 22:53
PROVIDERS: Internal Medicine; Admitting Provider Family Medicine; Emergency Provider Emergency Medicine; Visit Provider Family Medicine
DX: I25.110 Atherosclerotic heart disease of native coronary artery with unstable angina pectoris (principal); I25.82 Chronic total occlusion of coronary artery; J44.9 Chronic obstructive pulmonary disease, unspecified; Z72.0 Tobacco use; Z82.49 Family history of ischemic heart disease and other diseases of the circulatory system; Z79.899 Other long term (current) drug therapy
CPT/HCPCS: 36415; 71046; 80048; 80061; 81001; 83735; 84484; 85025; 85347; 86328; 92928; 92929; 93005; 93306; 93458; 99152; 99153; 99284; C1725; C1769; C1876; C9600; C9601; G0378; J1644; Q9967

== ENCOUNTER → 2020-04-25 09:16 | Outpatient (CLI) | payer BC, SELFPAY ==
[2020-04-25 09:47] LABS: Chloride 100 mmol/L (98-107)
[2020-04-25 09:48] LABS: Potassium 5.3 mmoL/L (3.5-5.1); Sodium 142 mmol/L (136-145)
[2020-04-25 09:50] LABS: Bilirubin,Unconjugated 0.7 mg/dL (0.0-1.1); Blood Urea Nitrogen 18 mg/dl (9-20); Estimated Glomerular Filt Rate 77 ml/min (>60); GFR (African American) 93 ML/MIN (>60)
[2020-04-25 09:51] LABS: Alanine Aminotransferase 21 U/L (12-78); Albumin Level 4.6 g/dl (3.5-5.0); Alkaline Phosphatase 86 U/L (38-126); Anion Gap 16.3 mEq/L (5-15); Aspartate Amino Transferase 27 U/L (17-59); Bilirubin,Direct 0.2 mg/dl (0.0-0.4); Bilirubin,Indirect 0.8 mg/dL (0.0-0.9); Calcium 10.4 mg/dl (8.4-10.2); Carbon Dioxide 31 mmol/L (22.0-30.0); Glucose 75 mg/dl (74-100); Total Protein,Serum 7.8 g/dl (6.3-8.2)
[2020-04-25 10:04] LABS: Basophils # 0.1 K/mm3 (0-0.2); Basophils % 0.7 % (0.1-2.0); Eosinophils # 0.2 K/mm3 (0.0-0.4); Eosinophils % 2.4 % (0.1-12.0); Hematocrit 53.9 % (42.0-52.0); Hemoglobin 17.6 g/dL (14.1-18.0); Lymphocytes # 1.7 K/mm3 (0.7-4.5); Lymphocytes % 17.3 % (10-50); Mean Corpuscular HGB Conc 32.7 g/dL (31.8-35.4); Mean Corpuscular Hemoglobin 30.1 pg (27.0-31.2); Mean Corpuscular Volume 91.9 fl (80-94); Mean Platelet Volume 7.8 fl (7.4-10.4); Monocytes # 1.1 K/mm3 (0.1-1.0); Monocytes % 11.3 % (1.7-9.3); Neutrophils # 6.7 K/mm3 (1.8-7.8); Neutrophils % 68.3 % (37.0-80.0); Platelet Count 309 K/mm3 (142-424); Red Blood Count 5.87 M/mm3 (4.60-6.20); Red Cell Distribution Width 13.3 % (11.5-17.5); White Blood Count 9.7 K/mm3 (4.8-10.8)
== END ==
PROVIDERS: Visit Provider Nurse Practitioner Family
DX: I25.10 Atherosclerotic heart disease of native coronary artery without angina pectoris (principal); E78.5 Hyperlipidemia, unspecified; F32.9 Major depressive disorder, single episode, unspecified; F41.9 Anxiety disorder, unspecified; F17.200 Nicotine dependence, unspecified, uncomplicated; Z95.5 Presence of coronary angioplasty implant and graft
CPT/HCPCS: 36415; 80048; 80076; 85025

== ENCOUNTER 2020-05-02 13:21 | Emergency (ER) | payer BC, SELFPAY ==
[2020-05-02] VITALS (7 sets, daily range): BP systolic 115–141; BP diastolic 66–96; PULSE 57–85; RESP 16–18; TEMP 36.8; O2SAT 97–99; BMI 24.4
--- NOTE | 2020-05-02 13:09 | ECG_ITS ---
APPROVED REPORT Exam: Resting ECG HR:62 bpm ECG Measurements Heart Rate 62 AXES MA 158 P 32 QRSd 88 QRS -28 QT 390 T 23 QTc 395 Conclusion Normal sinus rhythm Normal ECG Electronically signed by : Louie Ramírez, 05/12/2020 16:28:47
--- NOTE | 2020-05-02 13:24 | XR_ITS ---
PROCEDURE: XR CHEST PORTABLE CLINICAL HISTORY: cough COMPARISON: CR XR CHEST 2V from 04/14/2020 FINDINGS: The cardiomediastinal silhouette and pulmonary vascularity are within normal limits. The lungs are clear without infiltrates, suspicious nodules, or pleural effusions. Endplate hypertrophic changes are present within the thoracic spine. IMPRESSION: No acute findings. Dictated by: Rufino Franklin MD 05/02/2020 14:35 Rufino Franklin MD in OV 05/02/2020 14:35
--- NOTE | 2020-05-02 13:28 | HMH.EDCP ---
ED Disposition Clinical Impression: Atypical chest pain, Stable angina Disposition: Home, Self-Care Condition on Discharge: Good Instructions: DI for Atypical Chest Pain - Critical Care Critical Care Time: No Attestation: On , the high probability of a clinically significant, sudden or life threatening deterioration of the following system(s) required my full and direct attention, intervention and personal management. The time I documented below is in addition to time spent performing reported procedures but includes the following listed in this critical care notation. Medical Decision Making - Medical Records Medical records reviewed: Yes: I reviewed the patient's medical records. - Claudio Inquiry Pt receiving controlled substance: No Vital Signs: 05/02/20 13:21 05/02/20 13:58 05/02/20 14:31 Temperature 98.2 F Temperature Source Oral Pulse Rate [Left Radial] 71 77 71 Respiratory Rate 18 18 Blood Pressure [Right Arm] 120/81 129/77 123/96 H Blood Pressure Mean [Right Arm] 94 94 105 Blood Pressure Source [Right Arm] Automatic Cuff Automatic Cuff Blood Pressure Position [Right Arm] Sitting Sitting Sitting 02 Sat by Pulse Oximetry 97 99 97 Oxygen Delivery Method Room Air Room Air Room Air 05/02/20 15:17 05/02/20 16:07 05/02/20 16:38 Temperature Temperature Source Pulse Rate [Left Radial] 72 66 57 L Respiratory Rate 18 16 Blood Pressure [Right Arm] 115/76 141/66 H 140/83 Blood Pressure Mean [Right Arm] 89 91 102 Blood Pressure Source [Right Arm] Automatic Cuff Automatic Cuff Automatic Cuff Blood Pressure Position [Right Arm] Sitting Sitting Sitting 02 Sat by Pulse Oximetry 98 97 98 Oxygen Delivery Method Room Air Room Air Room Air - Lab Data Lab Results 05/02/20 13:30: WBC 11.0 H, RBC 5.41, Hgb 16.9, Hct 50.0, MCV 92.4, MCH 31.2, MCHC 33.8, RDW 13.3, Plt Count 310, MPV 7.4, Neut % (Auto) 77.6, Lymph % (Auto) 11.5, [place] % (Auto) 8.0, Eos % (Auto) 2.4, Baso % (Auto) 0.4, Neut # (Auto) 8.5 H, Lymph # (Auto) 1.3, [place] # (Auto) 0.9, Eos # (Auto) 0.3, Baso # (Auto) 0.0 05/02/20 13:30: Sodium 138, Potassium 4.5, Chloride 99, Carbon Dioxide 29, Anion Gap 14.5, BUN 15, Creatinine 1.10, Estimated Creat Clear 85, Estimated GFR 69, Est GFR ( Amer) 83, Glucose 112 H, Calcium 9.8, Total Bilirubin 0.6, AST 35, ALT 21, Alkaline Phosphatase 86, Troponin I < 0.01, NT-Pro-B Natriuret Pep 39.3, Total Protein 7.7, Albumin 4.6, Globulin 3.1, Albumin/Globulin Ratio 1.5 05/02/20 16:30: Troponin I < 0.01 Result diagrams: 05/02/20 13:30 05/02/20 13:30 Orders (Tests/Meds): ED MEDICATIONS Discontinued Medications Generic Name Dose Route Start Last Admin Trade Name Freq PRN Reason Stop Dose Admin Aspirin 325 mg 05/02/20 13:25 05/02/20 14:13 Aspirin 325mg Tablet PO 05/02/20 13:26 Not Given ONCE ONE Aspirin 324 mg 05/02/20 14:12 05/02/20 14:13 Aspirin 81mg Chewable Tablet PO 05/02/20 14:13 324 mg ONCE ONE Administration Nitroglycerin 0.4 mg 05/02/20 13:48 05/02/20 14:15 Nitroglycerin 0.4mg Sl Tablet SL 05/02/20 13:49 0.4 mg ONCE ONE Administration ORDERS Category Date Time Status Troponin I Q3H Lab 05/02/20 19:30 Ordered EKG Request [ECG Request by Dr/La Nena] Stat Y 05/02/20 13:24 Ordered - Radiology Data #1 Image(s): Chest Image Reviewed: Yes I reviewed the patient's radiology results, Yes I reviewed the patient's radiology image, Yes I have reviewed radiologist's interpretation Preliminary Findings: Normal/NAD - ECG Data Tracing #1 No ventricular rate of 62 bpm, normal AL interval, normal QTC. Consultation was normal sinus rhythm, normal EKG ECG initial impression date: 05/02/20 ECG initial impression time: 13:11 - Reevaluation(s) Time: 17:37 Reevaluation #1: Evaluation, patient is pain-free. Cardiology team to evaluate the patient. We believe that this was consistent with spasm from stent placement. Patient has negative trop
[2020-05-02 13:39] LABS: Basophils % 0.4 % (0.1-2.0); Eosinophils # 0.3 K/mm3 (0.0-0.4); Eosinophils % 2.4 % (0.1-12.0); Hemoglobin 16.9 g/dL (14.1-18.0); Lymphocytes # 1.3 K/mm3 (0.7-4.5); Lymphocytes % 11.5 % (10-50); Mean Corpuscular HGB Conc 33.8 g/dL (31.8-35.4); Mean Corpuscular Hemoglobin 31.2 pg (27.0-31.2); Mean Corpuscular Volume 92.4 fl (80-94); Mean Platelet Volume 7.4 fl (7.4-10.4); Monocytes # 0.9 K/mm3 (0.1-1.0); Neutrophils # 8.5 K/mm3 (1.8-7.8); Neutrophils % 77.6 % (37.0-80.0); Platelet Count 310 K/mm3 (142-424); Red Blood Count 5.41 M/mm3 (4.60-6.20); Red Cell Distribution Width 13.3 % (11.5-17.5)
[2020-05-02 13:46] LABS: Chloride 99 mmol/L (98-107); Potassium 4.5 mmoL/L (3.5-5.1); Sodium 138 mmol/L (136-145)
[2020-05-02 13:49] LABS: Alanine Aminotransferase 21 U/L (12-78); Albumin Level 4.6 g/dl (3.5-5.0); Albumin/Globulin Ratio 1.5 (1.1-1.8); Alkaline Phosphatase 86 U/L (38-126); Anion Gap 14.5 mEq/L (5-15); Aspartate Amino Transferase 35 U/L (17-59); Bilirubin,Total 0.6 mg/dl (0.2-1.3); Blood Urea Nitrogen 15 mg/dl (9-20); Calcium 9.8 mg/dl (8.4-10.2); Carbon Dioxide 29 mmol/L (22.0-30.0); Creatinine Clearance Estimated 85 mL/min (50-200); Estimated Glomerular Filt Rate 69 ml/min (>60); GFR (African American) 83 ML/MIN (>60); Globulin 3.1 g/dL (1.3-3.2); Glucose 112 mg/dl (74-100); Total Protein,Serum 7.7 g/dl (6.3-8.2)
[2020-05-02 13:58] LABS: NT Pro Brain Natriuretic Pep. 39.3 pg/mL (0-125)
[2020-05-02 14:03] LABS: Troponin I < 0.01 ng/ml (0.00-0.034)
--- NOTE | 2020-05-02 14:39 | PC.NURSE ---
Cisco MCKEON at bedside, states he will start pt on Metoprolol 25 mg at HS at home and nitro and pt will fu with them in a few weeks.
--- NOTE | 2020-05-02 14:49 | HMH.CNCARD ---
History of Present Illness Consult date: 05/02/20 Requesting physician: Rohan Wheeler Consult reason: chest pain Chief complaint: chest pain Additional Medical History:: 1. Smoker, 1.5 packs/day x 30 years A. COPD, moderate by PFTs, 2017 2. Anxiety and depression, situational 3. Family history of CAD in sister (sister this year after [place] and coronary stenting) and uncle (history of pacemaker) 4. Hyperlipidemia 5. Chronic GERD, on PPI 6. Coronary artery disease with ARNULFO to LAD and circumflex, 04/15/2020 ANGIOGRAPHIC RESULTS The left main artery Normal The left anterior descending artery Is proximally normal. After large first diagonal artery the LAD is then subtotally occluded. The distal LAD fills via left to left collaterals from a large first diagonal artery. The large first diagonal artery has an ostial 60 to 70% stenosis. Distal to the LAD stent there is a long 35 mm zone of narrowing. It is unknown if this is atherosclerosis or chronic spasm and atrophy from the chronic total occlusion. The circumflex artery Is a nondominant vessel and has a proximal focal 90% stenosis. Proximal and distal to the 90% stenoses are 10 to 20% diffuse stenoses The right coronary artery Is a large dominant vessel and has mid vessel 30 to 40% stenosis The ADAIR ventriculogram reveals Normal 65% The left ventricular end-diastolic pressure 10 mmHg IMPRESSION Critical coronary disease as described above Successful stenting and revascularization of chronically occluded mid LAD with successful stenting reducing to 0% with one drug-eluting stent Successful stenting of the proximal LAD extending into a large first diagonal artery severe disease reduced to 0% with one drug-eluting stent Persistent moderate to severe disease over 35 mm of a mid to distal 2 mm LAD Severe stenosis in the proximal nondominant circumflex artery Successful stenting of proximal circumflex artery severe disease reduced to 0% with one drug-eluting stent Mild to moderate disease in the mid dominant right coronary Normal ejection fraction Normal left ventricular end-diastolic pressure PLAN 1. Brilinta and aspirin 2. Maximize antianginal medications 3. Avoidance of tobacco products 4. LDL less than 55 5. Cardiac rehabilitation 6. I recommend patient undergo stress Myoview in 1 month to determine if the mid to distal LAD has increased in size. Given this was a chronic total occlusion I would not be surprised if the caliper of the mid to distal LAD positively remodels and matches the 2 mm diameter of the distal LAD. If patient stress test is normal I would continue with medical management. If patient has mid anterior apical ischemia I would recommend bringing him back to the [facility] and completely revascularized in the mid to distal LAD with drug-eluting stents History of present illness: This is a 59-year-old male presented to the emergency department with chest discomfort. Patient states that 2 weeks ago he had 3 stents placed by his environmental emergencies assistant due to acute coronary syndrome. States that he tolerated procedure well. He was started on medications after discharge. He has been feeling well since then. However yesterday he started having some chest discomfort. It occurred when he was eating breakfast in the morning. Dull in nature. Located substernally. There is no radiation. States that it was intermittent throughout the day. They are concerned today because he woke up and had a similar episode. Right now he is currently pain-free. He denies any difficulty breathing or cough. No palpitations. No fevers or chills. Did have one episode of slight nausea, however no vomiting. No diaphoresis. No headache, no change of vision, no focal weakness. The above per Dr. Wheeler Patient did overexert himself working on his property yesterday and also has experienced some chest wall discomfort at the same time. Patient has been extremely a
[2020-05-02 17:26] LABS: Troponin I < 0.01 ng/ml (0.00-0.034)
== END 2020-05-02 17:48 | disposition home or self-care (01) ==
PROVIDERS: Emergency Provider Emergency Medicine; PCP Family Medicine
DX: R07.89 Other chest pain (principal); I10 Essential (primary) hypertension; K21.9 Gastro-esophageal reflux disease without esophagitis; E78.5 Hyperlipidemia, unspecified; I25.10 Atherosclerotic heart disease of native coronary artery without angina pectoris; Z87.891 Personal history of nicotine dependence; Z79.899 Other long term (current) drug therapy
CPT/HCPCS: 71045; 80053; 83880; 84484; 85025; 93005; 99283

== ENCOUNTER → 2020-05-15 07:03 | Outpatient (CLI) | payer BC, SELFPAY ==
--- NOTE | 2020-05-15 07:05 | CA_ITS ---
APPROVED REPORT Exam: Exercise Treadmill Technologist: Karen Morales, Ht: 6 ft 0 in Wt: 188 lbs BSA: 2.08 m2 HR: 65 bpm BP: 132/87 mmHg Rhythm: MARKED SINUS BRADYCARDIA,OTHERWISE NORMAL Medical History Medical History: HTN, Hyperlipidemia Medications: Lisinopril,,,,, Omeprazole,,,,, Metoprolol,,,,, Asa,,,,, BRILINTA,,,,, BuPROPION,,,,, Nitro,,,,, Cardiac Risk Factors: HTN, Hyperlipidemia, FHX of CAD, Smoking Stress Test Details Test: Manual Treadmill HR Resting HR: 68 bpm Max Heart Rate (APMHR): 162 bpm Max HR Achieved: 138 bpm Target HR (85% APMHR): 137 bpm % of APMHR: 85 Recovery HR: 125 bpm BP Resting BP: 146.0/65.0 mmHg Max BP: 186.0/96.0 mmHg Recovery BP: 184.0/86.0 mmHg ECG Resting ECG: MARKED SINUS BRADYCARDIA,OTHERWISE NORMAL Clinical Exercise duration: 06:42 min Highest Stage Achieved: Exercise capacity: 7.0 METs Stress ECG Conclusion EXERCISED 6:42 ON MICHAELA PROTOCOL WITH SPEED SLOWED TO 3MPH THE LAST 30 SECS. MAX HEART RATE 138 BPM WHICH IS 85% OF PM FOR AGE. MAX BP 186/96. METS = 7.0. TEST STOPPED DUE TO SOA AND LEG FATIGUE. NO CHEST PAIN. NO ARRHYTHMIAS/ECTOPY. ALLOWING FOR MOTION ARTIFACT, THE ST RESPONSE TO EXERCISE IS NORMAL. NORMAL GXT. MYOVIEW IMAGES REPORTED SEPARATELY Test Summary REST . . . . . . . Standing REST . . . . . . . Sitting REST . . . . . . . Sitting REST 07:33 0.0 0.0 68 . 146/ 65 . . Stage 1 01:00 10.0 1.7 87 . . . . Stage 1 02:00 10.0 1.7 93 . . . . Stage 1 03:00 10.0 1.7 94 . 160/ 80 . . Stage 2 01:00 12.0 2.5 109 . . . . Stage 2 02:00 12.0 2.5 120 . . . . Stage 2 . . . . . . . Cardiolite injected Stage 2 03:00 12.0 2.5 128 . 172/ 86 . . Stage 3 . . . . . . . Protocol changed to Manual Treadmill Stage 3 00:42 14.0 3.0 137 . . . Stop exercise at 06:42 RECOVERY 01:00 0.0 0.0 122 . . . . RECOVERY 02:00 0.0 0.0 101 . 184/ 86 . . RECOVERY 03:00 0.0 0.0 80 . 186/ 96 . . RECOVERY 04:00 0.0 0.0 77 . 175/ 71 . . RECOVERY 05:00 0.0 0.0 84 . 166/ 86 . . RECOVERY 06:00 0.0 0.0 69 . 166/ 86 . . RECOVERY 06:33 0.0 0.0 75 . 147/ 73 . . Electronically signed by : Baldemar Noriega, 05/15/2020 13:10:31
--- NOTE | 2020-05-15 07:05 | NM_ITS ---
APPROVED REPORT Exam: Nuclear Stress Test Indication: fatigue Patient Location: Outpatient Stress Tech: Gladys Morales [place] Tech:RINA Trevino RT(R)(N) Ht: 6 ft 0 in HR: 65 bpm BP: 132/87 mmHg History: fatigue Procedure: Patient exercised on Favian protocol 6.42 minutes and sec, resting heart rate 65 bpm, resting blood pressure 132/87 mmHg, with exercise maximum heart rate achived was 138 bpm which is 85 % of the maximum predicted heart rate and blood pressure was 186/96 mmHg. Patient denied any complaint of chest pain. Patient has Adequate exercise capacity, achieved 7.0 METs of workload on treadmill, the blood pressure response to exercise was Adequate. Electrocardiogram Resting electrocardiogram showed sinus rhythm, with exercise there is less than 1.[address] segment depression noted from the baseline EKG. The EKG portion of the exercise Myoview is negative for ischemia. Cardiac Stress and Resting SPECT Images: Cardiac Stress and Resting SPECT images were obtained using technetium 99m Myoview 31.7 mCi stress and 10.44 mCi at rest. Gated SPECT for analysis of segmental wall motion and calculation of the ejection fraction also done. Cardiac stress and resting SPECT images show uniform myocardial activity without segmental perfusion abnormality, computer derived ejection fraction 55% with no regional wall motion abnormality, right ventricle is normal size and contractility. Conclusion: 1. The EKG portion of the exercise Myoview is negative for ischemia, patient has adequate exercise capacity achieved 7 mets of workload on treadmill, the blood pressure response to exercise was adequate, there was no exercise-induced chest discomfort. 2. No scintigraphic evidence of reversible ischemia seen at this level of exercise, computer derived ejection fraction is 55% with no regional wall motion abnormality, right ventricle is normal size and contractility. 3. Normal exercise Myoview study. Electronically signed by : Baldemar Noriega, 05/15/2020 13:41:09
--- NOTE | 2020-05-15 10:34 | HMH.ITSHM ---
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 [] atorvastin asa omeprazole
== END ==
PROVIDERS: PCP Family Medicine; Visit Provider Physician Assistant
DX: R42 Dizziness and giddiness (principal); I25.10 Atherosclerotic heart disease of native coronary artery without angina pectoris; Z95.5 Presence of coronary angioplasty implant and graft
CPT/HCPCS: 78452; 93017; 93225; A9502

== ENCOUNTER 2020-09-13 10:50 | Emergency (ER) | payer BC, SELFPAY ==
[2020-09-13 11:00] VITALS: BP 143/70; PULSE 63; RESP 19; TEMP 36.6; O2SAT 98; BMI 26.4
--- NOTE | 2020-09-13 11:01 | XR_ITS ---
PROCEDURE: XR SHOULDER RT MIN 2V CLINICAL INDICATION: fell off of ladder Pain COMPARISON: No exams were available for comparison FINDINGS: No acute fracture or dislocation. Mild osteoarthritic changes are present at the acromioclavicular and glenohumeral joint. There is an anterior extension of the acromion with subacromial stenosis. IMPRESSION: No acute findings. Dictated by: Rufino Franklin MD 09/13/2020 13:02 Rufino Franklin MD in [place] 09/13/2020 13:02
--- NOTE | 2020-09-13 11:36 | HMH.EDUTC ---
[facility] [place] Disposition Clinical Impression: Shoulder injury Qualifiers: Encounter type: initial encounter Laterality: right Qualified Code(s): S49.91XA - Unspecified injury of right shoulder and upper arm, initial encounter Disposition: Home, Self-Care Condition on Discharge: Good Instructions: DI for Shoulder Pain, How to Use a Sling, How To Perform RICE (Rest, Ice, Compress, Elevate) Additional Instructions: *RICE, Rest the extremity, Ice 15-20 minutes 3-4 times daily, Compress- wear the oc wrap as discussed as much as possible to help reduce swelling and pain, Elevate the extremity when at rest *Sling to right shoulder is for support and help control swelling, use it except in the shower. Be sure that is not to tight but not to loose either *Elevate when resting * take Tylenol in between doses of Ibuprofen to help if you have been told that you can take Ibuprofen Immediately follow up with your family doctor for new or worsening of symptoms, or no noticeable improvement over the next 3-[address] Clifton office on Tuesday for appointment Over the counter pain patches like lidocaine may help with pain Referrals: Abel Carbajal MD [Primary Care Provider] - As needed Francois Licona MD [Staff Physician] - (Call office on Tuesday for appointment) Time of Disposition: 11:49 Medical Decision Making - Claudio Inquiry Pt receiving controlled substance: No Claudio was queried for this patient: No Vital Signs: 09/13/20 11:00 Temperature 97.8 F Temperature Source Oral Pulse Rate [Right Brachial] 63 Respiratory Rate 19 Blood Pressure [Right Arm] 143/70 H Blood Pressure Mean [Right Arm] 94 Blood Pressure Source [Right Arm] Automatic Cuff Blood Pressure Position [Right Arm] Sitting 02 Sat by Pulse Oximetry 98 Oxygen Delivery Method Room Air Orders (Tests/Meds): ORDERS Category Date Time Status XR shoulder RT min 2V Stat Exams 09/13/20 11:01 Taken - Radiology Data #1 Image(s): Shoulder Image Reviewed: Yes I reviewed the patient's radiology image w/the ED provider Preliminary Findings: Normal/NAD [facility] [place] HPI - General Stated complaint: fell fr ladder09/12/20 hurt rght arm Time Seen by Provider: 09/13/20 11:36 Mode of Arrival: Ambulatory Source of Information: Patient Limitations: No Limitations Description of Symptoms (Recalled from Triage Doc. by RN): INJURY TO RIGHT SHOULDER AFTER FALLING APPROX 2-3 FEET FROM LADDER YESTERDAY AT APPROX 1430 HEENT Symptoms (Recalled from RN notes): No Resp Symptoms (Recalled from RN notes): No Skin Symptoms (Recalled from RN notes): No MS Symptoms (Recalled from RN notes): Yes Functional Status (Recalled from RN notes): WNL - History of Present Illness Provider Complaint: Patient states that he was on a ladder yesterday about 2 ft up when he slipped and fell and state that he hit against his right shoulder States that he had some pain but continued working States that as the evening went on he started having throbbing like pain and took some Tylenol States that he laid down last night thinking it would be better today but today no improvement and has severe pain when he tries to raise his arm so he came in to get it checked - Related Data Home Medications Medication Instructions Recorded Confirmed buPROPion HCL [Bupropion Xl] 150 mg PO DAILY 04/14/20 04/14/20 omeprazole 20 mg capsule,delayed 20 mg PO DAILY 04/22/20 04/22/20 release atorvastatin 80 mg tablet 40 mg PO HS tab 05/15/20 Previous Rx's Medication Instructions Recorded Aspirin [Aspirin 81mg EC Tab] 81 mg PO DAILY #30 tablet. 04/16/20 Ticagrelor [Brilinta 90mg 90 mg PO BID tab 04/16/20 Tablet] lisinopriL [Zestril 5mg 5 mg PO DAILY #30 tab 04/16/20 Tablet] nitroglycerin 0.4 mg sublingual 0.4 mg SUBLINGUAL Q5M PRN #30 tab 05/02/20 tablet metoprolol succinate 25 mg 25 mg PO DAILY #30 tab 08/12/20 tablet,extended release 24 hr Allergies Allergy/AdvReac Type Severity Reac
[2020-09-13 12:07] VITALS: BP 143/70; PULSE 63; RESP 19; TEMP 36.6; O2SAT 98
== END 2020-09-13 12:10 | disposition home or self-care (01) ==
PROVIDERS: Emergency Provider Nurse Practitioner; PCP Family Medicine
DX: S49.91XA Unspecified injury of right shoulder and upper arm, initial encounter (principal); W11.XXXA Fall on and from ladder, initial encounter; Y92.89 Other specified places as the place of occurrence of the external cause; K21.9 Gastro-esophageal reflux disease without esophagitis; E78.5 Hyperlipidemia, unspecified; I25.10 Atherosclerotic heart disease of native coronary artery without angina pectoris; I10 Essential (primary) hypertension; Z79.899 Other long term (current) drug therapy; Z87.891 Personal history of nicotine dependence
CPT/HCPCS: 73030; 99202; G0463

== ENCOUNTER → 2021-03-19 14:09 | Outpatient (CLI) | payer BC, SELFPAY ==
[2021-03-19 15:44] LABS: Alanine Aminotransferase 20 U/L (12-78); Albumin Level 3.9 g/dl (3.5-5.0); Alkaline Phosphatase 93 U/L (38-126); Aspartate Amino Transferase 32 U/L (17-59); Bilirubin,Direct 0.2 mg/dl (0.0-0.4); Bilirubin,Indirect 0.4 mg/dL (0.0-0.9); Bilirubin,Total 0.6 mg/dl (0.2-1.3); Bilirubin,Unconjugated 0.4 mg/dL (0.0-1.1); Chol/HDL Ratio 6.1 (1-3.5); Cholesterol 129 mg/dl (140-200); HDL Cholesterol 21 mg/dl (40-60); Total Protein,Serum 6.6 g/dl (6.3-8.2)
[2021-03-19 15:45] LABS: Triglycerides 401 mg/dl (30-150)
[2021-03-19 15:55] LABS: Direct LDL Cholesterol 61.41 mg/dL (100-129)
== END ==
PROVIDERS: Visit Provider Internal Medicine Cardiovascular Disease
DX: I25.10 Atherosclerotic heart disease of native coronary artery without angina pectoris (principal); I48.91 Unspecified atrial fibrillation; E78.2 Mixed hyperlipidemia; I10 Essential (primary) hypertension; Z95.5 Presence of coronary angioplasty implant and graft; Z95.818 Presence of other cardiac implants and grafts
CPT/HCPCS: 36415; 80061; 80076

== ENCOUNTER → 2022-04-23 09:42 | Outpatient (CLI) | payer BC, SELFPAY ==
[2022-04-23 11:23] LABS: Alanine Aminotransferase 28 U/L (12-78); Albumin Level 4.2 g/dl (3.5-5.0); Alkaline Phosphatase 176 U/L (38-126); Aspartate Amino Transferase 31 U/L (17-59); Bilirubin,Direct 0.2 mg/dl (0.0-0.4); Bilirubin,Indirect 0.3 mg/dL (0.0-0.9); Bilirubin,Total 0.5 mg/dl (0.2-1.3); Bilirubin,Unconjugated 0.3 mg/dL (0.0-1.1); Chol/HDL Ratio 6.2 (1-3.5); Cholesterol 130 mg/dl (140-200); HDL Cholesterol 21 mg/dl (40-60); Total Protein,Serum 7.2 g/dl (6.3-8.2)
[2022-04-23 11:26] LABS: Triglycerides 520 mg/dl (30-150)
[2022-04-23 11:34] LABS: Direct LDL Cholesterol 45.69 mg/dL (100-129)
== END ==
PROVIDERS: PCP Family Medicine; Visit Provider Internal Medicine Cardiovascular Disease
DX: I25.10 Atherosclerotic heart disease of native coronary artery without angina pectoris (principal); I10 Essential (primary) hypertension; E78.2 Mixed hyperlipidemia; Z95.5 Presence of coronary angioplasty implant and graft
CPT/HCPCS: 36415; 80061; 80076

== ENCOUNTER → 2022-10-29 12:40 | Outpatient (CLI) | payer BC, SELFPAY ==
--- NOTE | 2022-10-29 12:54 | CA_ITS ---
FINAL REPORT TECHNIQUE: Color Doppler, duplex Doppler and winn scale sonography of the bilateral neck arterial vasculature was performed. Velocities were measured in the carotid arteries. Stenosis evaluation based on the validated velocity criteria. CLINICAL HISTORY: dizziness, HTN, HLD, CARDIAC STENTS FINDINGS: The peak systolic velocity of the right common carotid artery is 96 cm/s. The peak systolic velocity of the right internal carotid artery is 122 cm/s and end diastolic velocity 49 cm/s. The ICA/CCA ratio is 1.3. No significant plaque is present. The right external carotid artery is patent. The right vertebral artery is patent with antegrade flow. The peak systolic velocity of the left common carotid artery is 181 cm/s. The peak systolic velocity of the left internal carotid artery is 89 cm/s and end diastolic velocity 39 cm/s. The ICA/CCA ratio is 0.5. No significant plaque is present. The left external carotid artery is patent.The left vertebral artery is patent with antegrade flow. IMPRESSION: No evidence of bilateral carotid stenosis. Bilateral patent vertebral arteries with antegrade flow. If indicated, CTA or MRA could further evaluate. Reviewed, Interpreted and Dictated by Prabhu Abreu III, MD Transcribed by Aliyah Ba Authenticated and [facility]
== END ==
PROVIDERS: PCP Family Medicine; Visit Provider Physician Assistant
DX: R42 Dizziness and giddiness (principal)
CPT/HCPCS: 93880

== ENCOUNTER → 2023-04-14 01:10 | Outpatient (CLI) | payer BC, SELFPAY ==
[2023-04-14 20:28] LABS: Basophils # 0.1 K/mm3 (0-0.2); Basophils % 0.4 % (0.1-2.0); Eosinophils # 0.4 K/mm3 (0.0-0.4); Eosinophils % 3.5 % (0.1-12.0); Hematocrit 52.7 % (42.0-52.0); Lymphocytes # 2.1 K/mm3 (0.7-4.5); Lymphocytes % 18.9 % (10-50); Mean Corpuscular HGB Conc 32.3 g/dL (31.8-35.4); Mean Corpuscular Hemoglobin 29.7 pg (27.0-31.2); Mean Corpuscular Volume 92.2 fl (80-94); Mean Platelet Volume 8.6 fl (7.4-10.4); Monocytes # 0.8 K/mm3 (0.1-1.0); Monocytes % 7.1 % (1.7-9.3); Neutrophils # 7.9 K/mm3 (1.8-7.8); Neutrophils % 70.1 % (37.0-80.0); Platelet Count 313 K/mm3 (142-424); Red Blood Count 5.71 M/mm3 (4.60-6.20); Red Cell Distribution Width 13.1 % (11.5-17.5); White Blood Count 11.2 K/mm3 (4.8-10.8)
[2023-04-14 20:56] LABS: Alanine Aminotransferase 28 U/L (12-78); Albumin/Globulin Ratio 1.2 (1.1-1.8); Alkaline Phosphatase 129 U/L (38-126); Anion Gap 10.4 mEq/L (5-15); Aspartate Amino Transferase 38 U/L (17-59); Bilirubin,Total 0.6 mg/dl (0.2-1.3); Blood Urea Nitrogen 18 mg/dl (9-20); Carbon Dioxide 26 mmol/L (22.0-30.0); Chloride 105 mmol/L (98-107); Chol/HDL Ratio 7.1 (1-3.5); Cholesterol 128 mg/dl (140-200); Estimated Glomerular Filt Rate 115 ml/min (>60); GFR (African American) 139 ML/MIN (>60); Globulin 3.3 g/dL (1.3-3.2); Glucose 210 mg/dl (74-100); HDL Cholesterol 18 mg/dl (40-60); Potassium 4.4 mmoL/L (3.5-5.1); Sodium 137 mmol/L (136-145); Total Protein,Serum 7.3 g/dl (6.3-8.2)
[2023-04-14 20:57] LABS: Triglycerides 483 mg/dl (30-150)
[2023-04-14 21:10] LABS: Direct LDL Cholesterol 56.55 mg/dL (100-129)
[2023-04-14 21:26] LABS: Prostate Specific Ag Screen 0.7 ng/ml (0.0-4.0); Thyroid Stimulating Hormone 1.51 uIU/mL (0.465-4.68)
[2023-04-14 21:30] LABS: Hemoglobin A1C 10.5 % (4.0-6.0)
[2023-04-14 22:06] LABS: Microalbumin/Creatinine Ratio 4.9
[2023-04-14 22:10] LABS: Creatinine,Urine Random 126 mg/dL (Not Estab.)
== END ==
PROVIDERS: PCP Nurse Practitioner; Visit Provider Nurse Practitioner
DX: I25.10 Atherosclerotic heart disease of native coronary artery without angina pectoris (principal); I10 Essential (primary) hypertension; E78.5 Hyperlipidemia, unspecified; R73.09 Other abnormal glucose; Z12.5 Encounter for screening for malignant neoplasm of prostate
CPT/HCPCS: 80053; 80061; 82043; 82570; 83036; 84443; 85025; G0103

== ENCOUNTER → 2023-04-21 23:23 | Outpatient (CLI) | payer BC, SELFPAY ==
[2023-04-21 18:32] LABS: Chol/HDL Ratio 6.3 (1-3.5); Cholesterol 113 mg/dl (140-200); HDL Cholesterol 18 mg/dl (40-60); Triglycerides 346 mg/dl (30-150); VLDL Cholesterol 69 mg/dL (0-40)
[2023-04-21 18:43] LABS: Direct LDL Cholesterol 59.54 mg/dL (100-129)
== END ==
PROVIDERS: PCP Nurse Practitioner; Visit Provider Nurse Practitioner
DX: E11.9 Type 2 diabetes mellitus without complications (principal); Z79.84 Long term (current) use of oral hypoglycemic drugs
CPT/HCPCS: 80061

== ENCOUNTER 2023-07-14 09:06 | Outpatient (CLI) | payer BC, SELFPAY ==
[2023-07-14 20:19] LABS: Hemoglobin A1C 6.3 % (4.0-6.0)
[2023-07-14 20:37] LABS: Alanine Aminotransferase 22 U/L (12-78); Albumin Level 4.1 g/dl (3.5-5.0); Albumin/Globulin Ratio 1.6 (1.1-1.8); Alkaline Phosphatase 87 U/L (38-126); Aspartate Amino Transferase 29 U/L (17-59); Bilirubin,Total 0.7 mg/dl (0.2-1.3); Blood Urea Nitrogen 20 mg/dl (9-20); Carbon Dioxide 28 mmol/L (22.0-30.0); Chloride 105 mmol/L (98-107); Chol/HDL Ratio 4.7 (1-3.5); Cholesterol 103 mg/dl (140-200); Estimated Glomerular Filt Rate 98 ml/min (>60); GFR (African American) 119 ML/MIN (>60); Globulin 2.5 g/dL (1.3-3.2); Glucose 113 mg/dl (74-100); HDL Cholesterol 22 mg/dl (40-60); Sodium 140 mmol/L (136-145); Total Protein,Serum 6.6 g/dl (6.3-8.2); Triglycerides 156 mg/dl (30-150); VLDL Cholesterol 31 mg/dL (0-40)
[2023-07-14 20:48] LABS: Direct LDL Cholesterol 65.43 mg/dL (100-129)
== END 2023-07-15 23:59 | disposition home or self-care (01) ==
PROVIDERS: PCP Nurse Practitioner; Visit Provider Nurse Practitioner
DX: E11.9 Type 2 diabetes mellitus without complications (principal); E78.1 Pure hyperglyceridemia
CPT/HCPCS: 80053; 80061; 83036

== ENCOUNTER 2023-10-26 18:00 | Outpatient (CLI) | payer BC, SELFPAY ==
[2023-10-26 18:33] LABS: Alanine Aminotransferase 15 U/L (12-78); Albumin Level 3.9 g/dl (3.5-5.0); Albumin/Globulin Ratio 1.5 (1.1-1.8); Alkaline Phosphatase 105 U/L (38-126); Anion Gap 10.1 mEq/L (5-15); Aspartate Amino Transferase 28 U/L (17-59); Bilirubin,Total 0.6 mg/dl (0.2-1.3); Blood Urea Nitrogen 20 mg/dl (9-20); Calcium 9.3 mg/dl (8.4-10.2); Carbon Dioxide 28 mmol/L (22.0-30.0); Chloride 107 mmol/L (98-107); Chol/HDL Ratio 4.6 (1-3.5); Cholesterol 115 mg/dl (140-200); Estimated Glomerular Filt Rate 86 ml/min (>60); GFR (African American) 103 ML/MIN (>60); Globulin 2.6 g/dL (1.3-3.2); Glucose 102 mg/dl (74-100); HDL Cholesterol 25 mg/dl (40-60); Potassium 5.1 mmoL/L (3.5-5.1); Sodium 140 mmol/L (136-145); Total Protein,Serum 6.5 g/dl (6.3-8.2); Triglycerides 113 mg/dl (30-150); VLDL Cholesterol 23 mg/dL (0-40)
[2023-10-26 18:43] LABS: Direct LDL Cholesterol 69.79 mg/dL (100-129); Hemoglobin A1C 6.6 % (4.0-6.0)
== END 2023-10-26 23:59 | disposition home or self-care (01) ==
LOC: LAB.DROPOF 10-27 09:20
PROVIDERS: PCP Nurse Practitioner; Visit Provider Nurse Practitioner
DX: E11.9 Type 2 diabetes mellitus without complications (principal); I10 Essential (primary) hypertension; E78.2 Mixed hyperlipidemia; Z79.84 Long term (current) use of oral hypoglycemic drugs; F17.210 Nicotine dependence, cigarettes, uncomplicated
CPT/HCPCS: 80053; 80061; 83036

== ENCOUNTER 2023-11-10 10:23 | Outpatient (CLI) | payer BC, SELFPAY ==
--- NOTE | 2023-11-10 10:23 | CT_ITS ---
FINAL REPORT CLINICAL HISTORY: lung cancer screening CURRENT SMOKER 1 PPD X 40 YEARS COMPARISON: None FINDINGS: CT CHEST LOW DOSE SCREENING HISTORY: Screening exam for lung cancer. Current smoker, 40 pack year smoking history DOSE: CTDIvol: 2.9 mGy, DLP: 109.42 mGy*cm COMPARISON: None . TECHNIQUE: Axial CT without IV contrast administration using low dose protocol FINDINGS: No acute lung disease is present . Ill-defined nodular densities in the right upper lobe measuring up to 6 mm in size, favor inflammatory. Mild changes of emphysema are present. Calcified granulomas are present as well. No pleural or pericardial effusion is seen . No adenopathy or mass lesion is present . IMPRESSION: 2 ill-defined nodular densities in the right upper lobe as described, measuring up to 6 mm in size. Favor inflammatory. LUNG RADS CATEGORY 3 RECOMMENDATION: 6 month LDCT follow up Reviewed, Interpreted and Dictated by Fred Abdi MD Transcribed by Sonia Howell Authenticated and [facility]
== END 2023-11-10 23:59 | disposition home or self-care (01) ==
LOC: RAD 10:23
PROVIDERS: PCP Nurse Practitioner; Visit Provider Nurse Practitioner
DX: Z87.891 Personal history of nicotine dependence (principal); Z12.2 Encounter for screening for malignant neoplasm of respiratory organs
CPT/HCPCS: 71271

== ENCOUNTER 2024-04-19 19:07 | Outpatient (CLI) | payer BC, SELFPAY ==
[2024-04-19 19:34] LABS: Basophils # 0.1 K/mm3 (0-0.2); Basophils % 1.2 % (0.1-2.0); Eosinophils # 0.5 K/mm3 (0.0-0.4); Eosinophils % 5.4 % (0.1-12.0); Hematocrit 52.4 % (42.0-52.0); Hemoglobin 17.1 g/dL (14.1-18.0); Lymphocytes # 2.3 K/mm3 (0.7-4.5); Lymphocytes % 24.7 % (10-50); Mean Corpuscular HGB Conc 32.6 g/dL (31.8-35.4); Mean Corpuscular Hemoglobin 30.2 pg (27.0-31.2); Mean Corpuscular Volume 92.6 fl (80-94); Mean Platelet Volume 8.8 fl (7.4-10.4); Monocytes % 10.9 % (1.7-9.3); Neutrophils # 5.4 K/mm3 (1.8-7.8); Neutrophils % 57.7 % (37.0-80.0); Platelet Count 264 K/mm3 (142-424); Red Blood Count 5.66 M/mm3 (4.60-6.20); Red Cell Distribution Width 13.9 % (11.5-17.5); White Blood Count 9.3 K/mm3 (4.8-10.8)
[2024-04-19 19:56] LABS: Creatinine,Urine Random 89 mg/dL (Not Estab.); Microalbumin < 6.000 mg/L (0-16.7)
[2024-04-19 20:08] LABS: Alanine Aminotransferase 17 U/L (12-78); Albumin Level 4.2 g/dl (3.5-5.0); Albumin/Globulin Ratio 1.6 (1.1-1.8); Alkaline Phosphatase 113 U/L (38-126); Anion Gap 6.2 mEq/L (5-15); Aspartate Amino Transferase 28 U/L (17-59); Bilirubin,Total 0.6 mg/dl (0.2-1.3); Blood Urea Nitrogen 20 mg/dl (9-20); Calcium 9.8 mg/dl (8.4-10.2); Carbon Dioxide 27 mmol/L (22.0-30.0); Chloride 110 mmol/L (98-107); Chol/HDL Ratio 4.6 (1-3.5); Cholesterol 116 mg/dl (140-200); Estimated Glomerular Filt Rate 86 ml/min (>60); GFR (African American) 103 ML/MIN (>60); Globulin 2.7 g/dL (1.3-3.2); Glucose 99 mg/dl (74-100); HDL Cholesterol 25 mg/dl (40-60); Potassium 5.2 mmoL/L (3.5-5.1); Sodium 138 mmol/L (136-145); Total Protein,Serum 6.9 g/dl (6.3-8.2); Triglycerides 321 mg/dl (30-150); VLDL Cholesterol 64 mg/dL (0-40)
[2024-04-19 20:16] LABS: Hemoglobin A1C 6.4 % (4.0-6.0)
[2024-04-19 20:19] LABS: Direct LDL Cholesterol 54.06 mg/dL (100-129)
[2024-04-19 20:38] LABS: Prostate Specific Ag Screen 0.7 ng/ml (0.0-4.0)
[2024-04-19 20:57] LABS: Vitamin B12 391 pg/mL (239-931)
[2024-04-19 21:45] LABS: Thyroid Stimulating Hormone 1.66 uIU/mL (0.465-4.68)
== END 2024-04-19 23:59 | disposition home or self-care (01) ==
LOC: LAB 19:09
PROVIDERS: PCP Nurse Practitioner; Visit Provider Nurse Practitioner
DX: E11.9 Type 2 diabetes mellitus without complications (principal); I10 Essential (primary) hypertension; I25.10 Atherosclerotic heart disease of native coronary artery without angina pectoris; E78.2 Mixed hyperlipidemia; F41.9 Anxiety disorder, unspecified; F32.9 Major depressive disorder, single episode, unspecified; Z12.5 Encounter for screening for malignant neoplasm of prostate
CPT/HCPCS: 80050; 80053; 80061; 82043; 82570; 82607; 83036; 84443; 85025; G0103

== ENCOUNTER 2024-04-30 09:22 | Outpatient (CLI) | payer BC, SELFPAY ==
--- NOTE | 2024-04-30 09:23 | CT_ITS ---
FINAL REPORT TECHNIQUE: Thin section axial images were obtained from the lung apices to the upper abdomen by computed tomography. Reformatted images were obtained and reviewed. This study was performed with techniques to keep radiation doses al low as reasonably achievable (ALARA). Individualized dose reduction techniques using automated exposure control or adjustment of mA and/or kV according to the patient's size were employed. CLINICAL HISTORY: lung cancer screening CURRENT SMOKER 1PPD X 40+ YEARS COMPARISON: 11/10/2023 FINDINGS: CHEST CT LOW DOSE 64-year-old male, current smoker, 40+ pack year history. CTDI vol (mGy): 2.9 DLP (mGy-cm): 106.29 There is no axillary adenopathy. Several small mediastinal lymph nodes are identified. The heart is normal in size. There are coronary artery calcifications present with presumed stents. There is no pericardial or pleural effusion. There is mild emphysema and mild pulmonary scarring. Lung window images demonstrate the 2 right upper lobe nodules seen on the prior LDCT of November, the largest measuring 6 mm in size and best seen on image #17 of series 3. These nodules are stable. There are other small less than 5 mm in size nodules seen bilaterally, which are also stable. No new mass or nodule is identified. Calcified granulomas are present in the left upper lobe and right lower lobe. Limited images of the upper abdomen reveal that the gallbladder has been surgically resected.. IMPRESSION: Lung-RADS category 2. Recommend 12 month follow up low dose chest CT. Reviewed, Interpreted and Dictated by Prabhu Abreu III, MD Transcribed by Sonia Howell Authenticated and [facility]
== END 2024-04-30 23:59 | disposition home or self-care (01) ==
LOC: RAD 09:23
PROVIDERS: PCP Nurse Practitioner; Visit Provider Nurse Practitioner
DX: Z12.2 Encounter for screening for malignant neoplasm of respiratory organs (principal); Z87.891 Personal history of nicotine dependence
CPT/HCPCS: 71271

== ENCOUNTER 2024-05-15 13:12 | Outpatient (CLI) | payer BC, SELFPAY ==
--- NOTE | 2024-05-15 13:12 | US_ITS ---
FINAL REPORT CLINICAL HISTORY: PALP LUMP ON BACK OF NECK COMPARISON: None FINDINGS: Limited sonographic images were obtained of the soft tissues of the back of the neck. There is a 1.8 x 1.5 cm heterogeneous hypoechoic mass at the area of interest with a nonspecific appearance. IMPRESSION: 1.8 cm nonspecific mass at the area of interest. Differential diagnosis includes complex fluid collection including hematoma, abscess, or possibly neoplasm. Authenticated and [facility]
== END 2024-05-15 23:59 | disposition home or self-care (01) ==
LOC: RAD 13:12
PROVIDERS: PCP Nurse Practitioner; Visit Provider Nurse Practitioner Family
DX: R22.1 Localized swelling, mass and lump, neck (principal)
CPT/HCPCS: 76536

== ENCOUNTER 2024-11-09 07:45 | Outpatient (CLI) | payer BC, SELFPAY ==
--- OUTSIDE RECORDS SUMMARY | 2024-11-09 07:47 | XMS_ITS ---
Author Organization Unknown Medications Medication Instructions Effective Dates (start - stop) Status 24 HR bupropion hydrochlorid e 150 MG Extended Release Oral Tablet [id number]:00:00.00 0+00:0 0 - Completed 24 HR metoprolol succinate 2 5 MG Extended Release Oral Tablet [id number]:00:00.000+0 0:0 0 - Completed 24 HR bupropion hydrochlorid e 150 MG Extended Release Oral Tablet [id number]:00:00.00 0+00:0 0 - Completed 24 HR bupropion hydrochlorid e 150 MG Extended Release Oral Tablet [id number]:00:00.00 0+00:0 0 - Completed omeprazole 20 MG Delayed Rel ease Oral Capsule [id number]:00:00.000+00:0 0 - Completed 24 HR metoprolol succinate 2 5 MG Extended Release Oral Tablet [id number]:00:00.000+0 0:0 0 - Completed omeprazole 20 MG Delayed Rel ease Oral Capsule [id number]:00:00.000+00:0 0 - Completed 24 HR bupropion hydrochlorid e 150 MG Extended Release Oral Tablet [id number]:00:00.00 0+00:0 0 - Completed omeprazole 20 MG Delayed Rel ease Oral Capsule [id number]:00:00.000+00:0 0 - Completed 24 HR metoprolol succinate 2 5 MG Extended Release Oral Tablet [id number]:00:00.000+0 0:0 0 - Completed 24 HR metoprolol succinate 2 5 MG Extended Release Oral Tablet [id number]:00:00.000+0 0:0 0 - Completed 24 HR metoprolol succinate 2 5 MG Extended Release Oral Tablet [id number]:00:00.000+0 0:0 0 - Completed lisinopril 5 MG Oral Tablet 2021:00:00.000+00:0 0 - Completed 24 HR metoprolol succinate 2 5 MG Extended Release Oral Tablet [id number]:00:00.000+0 0:0 0 - Completed atorvastatin 40 MG Oral Tablet 2 [id number]:00:00.000+00:0 0 - Completed 24 HR metoprolol succinate 2 5 MG Extended Release Oral Tablet [id number]:00:00.000+0 0:0 0 - Completed {21 (methylprednisolone 4 MG Oral Tablet) } Pack [id number]:00:00.000+00:0 0 - Completed cyclobenzaprine hydrochlorid e 10 MG Oral Tablet [id number]:00:00.000+00:0 0 - Completed prednisone 20 MG Oral Tablet 08-19-11:00:00.000+00:0 0 - Completed atorvastatin 40 MG Oral Tablet [id number]:00:00.000+00:0 0 - Completed icosapent ethyl 1000 MG Oral Capsule [Vascepa] [id number]:00:00.000+00:0 0 - Completed 24 HR metoprolol succinate 2 5 MG Extended Release Oral Tablet [id number]:00:00.000+0 0:0 0 - Completed lisinopril 5 MG Oral Tablet 2022:00:00.000+00:0 0 - Completed lisinopril 5 MG Oral Tablet 2021:00:00.000+00:0 0 - Completed atorvastatin 40 MG Oral Tablet [id number]:00:00.000+00:0 0 - Completed atorvastatin 40 MG Oral Tablet [id number]:00:00.000+00:0 0 - Completed 24 HR metoprolol succinate 2 5 MG Extended Release Oral Tablet [id number]:00:00.000+0 0:0 0 - Completed lisinopril 5 MG Oral Tablet 2022:00:00.000+00:0 0 - Completed 24 HR metoprolol succinate 2 5 MG Extended Release Oral Tablet [id number]:00:00.000+0 0:0 0 - Completed Patient Care team information Name Category Status Period Participants - - Proposed period not known -
--- NOTE | 2024-11-09 08:00 | CA_ITS ---
APPROVED REPORT EXAM: Comprehensive 2D, Doppler, and color-flow Echocardiogram Hospital Liaison: Tiana Perez RDCS Ht: 6 ft 0 in Wt: 209lbs BSA: 2.17 BP: 117/78 mmHg Indications: QBN EKG,CAD,HTN,HLP M-Mode Dimensions RVDd 2.66 cm (0.9-2.6) LA Diam 4.28 cm (1.9-4.0) LVDd 4.47 cm (3.5-5.7) LVDs 3.42 cm (3.5-5.7) IVSd 0.89 cm (0.6-1.1) PWd 0.84 cm (0.6-1.1) EF (Teich) 47.10% FS 23.50% EDV (Teich) 91.00 mL TAPSE 1.86 (<1.7) ESV (Teich) 48.10 mL LV Diastology E Decel Time 197 (160-240 msec) E/A Ratio 1.1 Mitral Valve MV E Max Sumanth. 56.0 (40-130 cm/s) MV A Velocity 51.0 (40-130 cm/s) E/A Ratio 1.09 MV PHT 58.0 ms Left Ventricle The left ventricle is normal size. The left ventricular systolic function is normal. The left ventricular ejection fraction is within the normal range. There is normal left ventricular wall thickness. There is normal LV segmental wall motion. The left ventricular diastolic function is normal. LVEF is 55%. Right Ventricle The right ventricle is mildly dilated. The right ventricular systolic function is normal. Atria The left atrium size is normal. The right atrium size is normal. There is no Doppler evidence of interatrial shunt. The aortic valve is mildly thickened. Aortic Valve There is no aortic valvular stenosis. No aortic regurgitation is present. Mitral Valve The mitral valve is normal in structure. No evidence of mitral valve stenosis. Trace mitral regurgitation. Tricuspid Valve Tricuspid valve is grossly normal in structure and function. Trace tricuspid regurgitation. There is insufficient TR jet to estimate RVSP. Pulmonic Valve The pulmonary valve is normal in structure. Mild pulmonic regurgitation. Great Vessels The aortic root is normal in size. IVC is normal in size and collapses >50% with inspiration. Pericardium There is no pericardial effusion. Other Information Study Quality: Fair Conclusion Normal biventricular systolic function. Mild RV dilation. Mild PI. Electronically signed by : Macy Wu MD 11/15/2024 14:13:43
== END 2024-11-09 23:59 | disposition home or self-care (01) ==
LOC: RT 07:46
PROVIDERS: PCP Nurse Practitioner; Visit Provider Nurse Practitioner Family
DX: I51.7 Cardiomegaly (principal); R94.31 Abnormal electrocardiogram [ECG] [EKG]; Z87.891 Personal history of nicotine dependence
CPT/HCPCS: 93306

== ENCOUNTER 2025-02-07 16:05 | Outpatient (CLI) | payer BC, SELFPAY ==
[2025-02-07 19:25] LABS: Hematocrit 49.2 % (42.0-52.0); Hemoglobin 16.5 g/dL (14.1-18.0); Immature Granulocytes % 0.4 %; Mean Corpuscular HGB Conc 33.5 g/dL (31.8-35.4); Mean Corpuscular Hemoglobin 30.0 pg (27.0-31.2); Mean Corpuscular Volume 89.5 fl (80-94); Nucleated Red Blood Cells % 0 %; Platelet Count 312 K/mm3 (142-424); Red Blood Count 5.50 M/mm3 (4.60-6.20); Red Cell Distribution Width-SD 42.0 fL; White Blood Count 11.1 K/mm3 (4.8-10.8)
[2025-02-07 19:55] LABS: Alanine Aminotransferase 21 U/L (12-78); Albumin Level 4.4 g/dl (3.5-5.0); Albumin/Globulin Ratio 1.7 (1.1-1.8); Alkaline Phosphatase 114 U/L (38-126); Anion Gap 12.6 mEq/L (5-15); Aspartate Amino Transferase 31 U/L (17-59); Bilirubin,Total 0.5 mg/dl (0.2-1.3); Blood Urea Nitrogen 17 mg/dl (9-20); Calcium 9.8 mg/dl (8.4-10.2); Carbon Dioxide 24 mmol/L (22.0-30.0); Chloride 105 mmol/L (98-107); Cholesterol 148 mg/dl (140-200); Creatinine,Serum 1.10 mg/dl (0.66-1.25); Estimated Glomerular Filt Rate 68 ml/min (>60); GFR (African American) 82 ML/MIN (>60); Globulin 2.6 g/dL (1.3-3.2); Glucose 106 mg/dl (74-100); HDL Cholesterol 22 mg/dl (40-60); Potassium 4.6 mmoL/L (3.5-5.1); Sodium 137 mmol/L (136-145); Total Protein,Serum 7.0 g/dl (6.3-8.2)
[2025-02-07 20:11] LABS: Triglycerides 568 mg/dl (30-150)
[2025-02-07 20:26] LABS: Thyroid Stimulating Hormone 1.11 uIU/mL (0.465-4.68)
[2025-02-07 20:45] LABS: Vitamin B12 470 pg/mL (239-931)
[2025-02-07 20:56] LABS: Hepatitis C Ab Qual. W/ RFX NEGATIVE (Negative)
[2025-02-07 21:05] LABS: Hemoglobin A1C 6.9 % (4.0-6.0)
--- OUTSIDE RECORDS SUMMARY | 2025-02-08 09:57 | XMS_ITS | Clinical Summary ---
Author Organization [facility] Address [address], [address] [place] [address] Care Team Providers Care Watch Assembly Instructor Name Role Phone Unavailable Primary Care Provider Unavailabl e Allergies No known active allergies Medications ASPIRIN LOW DOSE 81 MG EC tablet 09/11/2020 Act remi atorvastatin (LIPITOR) 40 MG tablet 09/18/2020 Active buPROPion (WELLBUTRIN XL) 150 MG extended release tablet 08/28/2020 Acti ve coenzyme Q10 100 MG CAPS capsule Take 100 mg by mouth daily Active lisinopril (PRINIVIL;ZESTRI L) 5 MG tablet 08/28/2020 Acti ve metoprolol succinate (TOPROL XL) 25 MG extended release tablet 09/04/2020 Acti ve omeprazole (PRILOSEC) 20 MG delayed release capsule 08/28/2020 Active BRILINTA 90 MG TABS tablet 08/28/2020 Active Active Problems No known active problems Resolved Problems Problem Noted Date Diagnosed Date Resolved Date Pre-op evaluation 11/24/2020 01/17/2021 Family History Relation Name Status Comments Father Mother Alive Social History Tobacco Use Types Packs/Day Years Used Date Smoking Tobacco: Every Day Smokeless Tobacco: Never Tobacco Cessation:Ready to Q uit: No; Counseling Given: Yes Alcohol Use Standard Drinks/Week Comments Never 0 (1 standard drink = 0.6 oz pur e alcohol) AUDIT-C Answer Date Recorded Q1: How often do you have a drink containing alc ohol? Never 11/04/2020 Q2: How many drinks containi ng alcohol do you have on a typical day when you are drinking? Not asked 11/04/2020 Q3: How often do you have six or more drinks on one occasion? Never 11/04/2020 Sex and Gender Information Value Date Recorded Sex Assigned at Not on file Legal Sex Male 11:50 AM EDT Gender Identity Not on file Sexual Orientation Not on file Last Filed Vital Signs Vital Sign Reading Time Taken Comments Blood Pressure - - Pulse - - Temperature - - Respiratory Rate - - Oxygen Saturation - - Inhaled Oxygen Concentration - - Weight 96.2 kg (212 lb) 05/21/2021 9:56 AM EST Height 182.9 cm (6') 05/21/2021 9:56 AM EST Body Mass Index 28.75 05/21/2021 9:56 AM EST Plan of Treatment Not on file Insurance
--- OUTSIDE RECORDS SUMMARY | 2025-02-08 09:57 | XMS_ITS | Clinical Summary ---
Author Organization [facility] Address [address] [place] [address] Phone Care Team Providers Care Dredge Or Barge Shore Hand Name Role Phone Abel Carbajal MD Primary Care Provider + [phone] Allergies No known active allergies Medications omeprazole (PRILOSEC) 20 mg Oral Capsule, Delayed Release(E.C.) Take 20 mg by mouth daily. Active atorvastatin (LIPITOR) 80 mg Oral Tablet Take 40 mg by mouth nightly. Active aspirin 81 mg Oral Tablet, Delayed Release (E.C.) Take 81 mg by mouth daily. Active buPROPion HCL, smoking deter, 150 mg Oral Tablet Sustained Release 12 hr Take 150 mg by mouth 2 times daily. Active lisinopriL (PRINIVIL;ZESTR IL) 5 mg Oral Tablet Take 5 mg by mouth daily. Active ticagrelor (BRILINTA) 90 mg Oral Tablet Take 90 mg by mouth 2 times daily. Active metoprolol succinate (TOPROL-XL) 25 mg Oral Tablet Sustained Release 24 hr Take 25 mg by mouth daily. Active Coenzyme Q10 100 mg Oral Capsule Take 200 mg by mouth daily. Active docusate sodium (COLACE) 100 mg Oral Capsule Take 1 Cap by mouth 2 times daily as needed for Constipation. 40 Cap 1 11/24/2020 3:43 PM EDT 1 Active methylPREDNISol one (MEDROL DOSPACK) 4 mg Oral Tablets, Dose PackIndications :Lumbar pain,Strain of lumbar region, initial encounter follow package directions 21 Tablet 2 Active Active Problems Problem Noted Date Diagnosed Date Pre-op evaluation 11/24/2020 Surgical History Surgery Date Site/Laterality Comments CORONARY ANGIOPLASTY WITH ST ENT PLACEMENT 04/14/2020 CHOLECYSTECTOMY SHOULDER ARTHROSCOPY 11/24/2020 Right RIGHT SHOULDER ARTHROSCOPY, EXAM UNDER ANESTHSIA, ARTHROSCOPIC DEBRIDEMENT DECOMPRESSION, ARTHROSCOPIC ROTATOR CUFF REPAIR WITH PATCH AUGMENTATION, ARTHROSCOPIC BICEP TENODESIS ; Surgeon: Caridad Payne MD; Location: [facility]; Service: Orthopedics Medical devices from this surgery are in the Medical Devices section. Medical History Medical History Date Comments CAD (coronary artery disease) Hyperlipidemia COPD (chronic obstructive pulmonary disease) (HC C) Anxiety Depression GERD (gastroesophageal reflux disease) Hypertension Family History Medical History Relation Name Comments Heart Surgery Brother Heart Disease Sister Anesth Problems Neg Hx Relation Name Status Comments Brother Sister Social History Tobacco Use Types Packs/Day Years Used Date Smoking Tobacco: Every Day Cigarettes 0.5 30 Smokeless Tobacco: Never Tobacco Cessation:Ready to Q uit: Yes; Counseling Given: Yes Comments:plans to quit by 07/04/2020 Alcohol Use Standard Drinks/Week Comments Not Currently 0 (1 standard drink = 0.6 oz pur e alcohol) Sex and Gender Information Value Date Recorded Sex Assigned at Not on file Legal Sex Male 12:16 AM EDT Gender Identity Not on file Sexual Orientation Not on file Obstetrics History Last Filed Vital Signs Vital Sign Reading Time Taken Comments Blood Pressure 134/68 04/06/2022 10:01 AM EDT Pulse 66 04/06/2022 10:01 AM EDT Temperature 36.5 C (97.7 F) 04/06/2022 10:01 AM EDT Respiratory Rate 20 11/24/2020 5:18 PM EDT Oxygen Saturation 98% 04/06/2022 10:01 AM EDT Inhaled Oxygen Concentration - - Weight 100.7 kg (222 lb) 04/06/2022 10:01 AM EDT Height 182.9 cm (6') 04/06/2022 10:01 AM EDT Body Mass Index 30.11 04/06/2022 10:01 AM EDT Plan of Treatment Health Maintenance Due Date Last Done Comments Annual Wellness Exam 1964 Hepatitis C Screening 1979 DTaP/TDaP/Td (1 - Tdap) 1980 Pneumococcal Vaccine 50+ (1 of 2 - PCV) 1980 Cologuard 2006 Colon Cancer Screening 2006 Colonoscopy 2006 FIT 2006 Sigmoidoscopy 2006 Virtual Colonography 2006 Zoster (1 of 2) 2011 COVID-19 Vaccine (1 - 2023-2 5 season) 2024 Influenza Vaccine (#1) 2025 04/30/2020 Hepatitis B Vaccine Aged Out No longe r eligible based on patient's age to complete this topic Meningococcal B Vaccine Aged Out No l onger eligible based on patient's age to complete this topic Medical Devices Implanted Type Area Research Kennel Supervisor Device Identifier Shelf Expiration Date Model / Serial / Lot Cardiac Stents X3 [place] Sut Corkscr Ft 5.5x14.7mm Babsrb Biocmps #2 - [id number] Implanted:Qty: 2 on 11/24/2020 by Caridad Payne MD at [facility] Right: Shoulder ARTHREX [id number] 07/10/2024 [id number] F-3 / / [id number] [place] Sut Swivelk C 4.75x19.1mm Arscp Ft Bioresbl Kntls - [id number] Implanted:Qty: 2 on 11/24/2020 by Caridad Payne MD at [facility] Right: Shoulder ARTHREX [id number] 04/09/2024 [id number] C / / [id number] Implant Bioinductive With Arthro Del Large - [id number] Implanted:Qty: 1 on 11/24/2020 by Caridad Payne MD at [facility] Right: Shoulder BECKER [employer] NEPHEW:ORTHO [id number] 08/11/2021 [id number] / / [id number] Anchors Bone 3w Arthro Del System - [id number] Implanted:Qty: 1 on 11/24/2020 by Caridad Payne MD at [facility] Right: Shoulder BECK[employer]PHEW:ORTHO [id number] 05/15/2023 [id number] / / [id number] Staple Tendon - [id number] Implanted:Qty: 1 on 11/24/2020 by Caridad Payne MD at [facility] Right: Shoulder BECKER [employer] NEPHEW:ENDO 05/26/2023 [id number] / / [id number] Insurance ANTHEM PPO ANTHEM PPO Care Teams Dredge [employer] [place] [place] Hand Relationship Specialty Start Date End Date Abel Carbajal MD [address] [place] [address] [place] [id number] PCP - General Family Medicine 07/08/19
[2025-02-09 08:32] LABS: Hepatitis B Surface Antigen Negative (Negative)
== END 2025-02-07 23:59 | disposition home or self-care (01) ==
LOC: LAB.DROPOF 02-08 09:56
PROVIDERS: PCP Nurse Practitioner; Visit Provider Nurse Practitioner
DX: I25.10 Atherosclerotic heart disease of native coronary artery without angina pectoris (principal); E11.9 Type 2 diabetes mellitus without complications; E78.2 Mixed hyperlipidemia; J44.9 Chronic obstructive pulmonary disease, unspecified; F41.9 Anxiety disorder, unspecified; F32.A Depression, unspecified; F17.200 Nicotine dependence, unspecified, uncomplicated; I10 Essential (primary) hypertension; Z95.5 Presence of coronary angioplasty implant and graft; N52.9 Male erectile dysfunction, unspecified; K21.9 Gastro-esophageal reflux disease without esophagitis
CPT/HCPCS: 80053; 80061; 82043; 82570; 82607; 83036; 84443; 85025; 86803; 87340; 87389